=== PATIENT | female | born 1970 | race Two or more races ===

== ENCOUNTER 2025-07-24 11:00 | Inpatient (IN) | payer BC, SELFPAY ==
--- NOTE | ~2025-07-24 | CT_ITS ---
EXAMINATION: CT ABDOMEN PELVIS WITHOUT IV CONTRAST HISTORY: Sepsis COMPARISON: There are no prior studies available for comparison. TECHNIQUE: CT scan of the abdomen and pelvis was performed without contrast using standard departmental protocol. Coronal and sagittal reformatted images were generated and reviewed. This CT exam was performed with one or more of the following dose reduction techniques: automated exposure control, adjustment of the mA and/or kV according to patient size, use of iterative reconstruction technique. DLP: 422 mGy-cm FINDINGS: LOWER CHEST: The visualized lung bases are clear. There is no pleural effusion. CARDIOVASCULATURE: The heart is normal in size. There is no pericardial effusion. LIVER: The liver is normal in size and contour. The liver has an unremarkable unenhanced appearance. GALLBLADDER / BILE DUCTS: The gallbladder is not seen and has presumably been removed. There is no intra or extrahepatic biliary ductal dilatation. SPLEEN: The spleen is normal in size and has an unremarkable unenhanced appearance. PANCREAS: The pancreas has an unremarkable unenhanced appearance. ADRENAL GLANDS: Unremarkable. KIDNEYS/RETROPERITONEUM: No renal calculi are identified. There is no hydronephrosis. LYMPH NODES: Small mesenteric lymph nodes. No enlarged lymph nodes. VASCULATURE: Normal. MESENTERY/PERITONEUM: No free fluid. No masses. There is no free intraperitoneal gas. STOMACH: Normal SMALL BOWEL: The small bowel is normal in caliber. COLON: Fluid-filled colon suggestive of an ileus. Mild wall thickening of the left colon and sigmoid colon and stranding of the fat questionable for mild colitis. No pneumatosis. APPENDIX: Normal. URINARY BLADDER/PELVIC ORGANS: Empty bladder. Hysterectomy. No pelvic mass. BONES / SOFT TISSUES: Tiny umbilical hernia containing fat. Nonspecific subcentimeter sclerotic lesion in the L3 vertebral body. This may represent a bone island. CT/CT abdomen pelvis wo IV con IMPRESSION: Colonic ileus and question mild colitis of the distal colon. Electronically signed by: Yu eMade MD 07/24/2025 02:35 PM EDT
--- NOTE | ~2025-07-24 | CT_ITS ---
EXAMINATION: CT CHEST WITHOUT CONTRAST CLINICAL INFORMATION: Sepsis COMPARISON: None available. TECHNIQUE: Multidetector volumetric CT imaging of the chest was done. Axial MIP volume rendering provided. Sagittal and coronal reformatted images were obtained. This CT examination was performed using dose optimization techniques as appropriate, variously including the following: *Automated exposure control *Adjustment of mA and/or kV according to patient size (this includes techniques or standardized protocols for targeted exams where dose is matched to indication/reason for exam; i.e. extremities or head) *Use of iterative reconstruction technique FINDINGS: LUNGS: There is a 2 x 4 mm solid pulmonary nodule in the lateral right upper lobe. Lungs are clear otherwise. MEDIASTINUM: The mediastinum is normal. CORONARY ARTERY CALCIFICATION: None PLEURA: There is no pleural effusion. No pleural mass or thickening. AXILLA: No lymphadenopathy. UPPER ABDOMEN: Unremarkable. OSSEOUS STRUCTURES: Unremarkable. CT/CT chest wo IV con IMPRESSION: No acute abnormality. 2 x 4 mm solid pulmonary nodule in the lateral right upper lobe. No further follow-up is indicated per Fleischner Society recommendations, unless the patient falls into a high risk category, in which case a 12 month follow-up CT chest without contrast is optional. High risk patients includes those with a history of smoking, first-degree relative with lung cancer, or exposure to uranium, radon, or asbestos. Electronically signed by: Demond Bowman MD 07/24/2025 01:31 PM EDT
[2025-07-24 11:07] VITALS: BP 104/76; PULSE 111; RESP 18; TEMP 36.7; O2SAT 98; BMI 21.9
--- NOTE | 2025-07-24 11:09 | ED.GENADULT ---
HPI - General Adult General Chief complaint: Abdominal Pain Stated complaint: Dizziness, headache, vomiting Time Seen by Provider: 07/24/25 12:18 History of Present Illness ED Provider: Dr. Vital HPI narrative: 55 y/o F patient; PMH CKD stage III, Lupus on hydroxychloroquine, hx neutropenia; presents from home reporting approx 4 days of nausea/vomiting, abdominal pain, bright red bloody stools, intermittent fevers, and generalized weakness. The patient otherwise denies: cough/congestion, SOB, chest pain, syncope. Hx hysterectomy 11/17 to cervical CA, tubal ligation, cholecystectomy in March 2025. Related Data Home Medications ?Medication ?Instructions ?Recorded ?Confirmed hydroxychloroquine 200 mg tablet 400 mg PO DAILY 07/24/25 07/24/25 tirzepatide (weight loss) 2.5 2.5 mg subcut QWEEK 07/24/25 07/24/25 mg/0.5 mL subcutaneous pen injector (Zepbound) Allergies Allergy/AdvReac Type Severity Reaction Status Date / Time acetaminophen (From Percocet) Allergy Abdominal Verified 07/24/25 11:13 Pain oxycodone (From Percocet) Allergy Abdominal Verified 07/24/25 11:13 Pain Review of Systems Review of Systems: Yes all other systems are reviewed and are negative PMFSH Past Medical History Attestation statement: The following information was validated with the patient. Source: unable to obtain Social History Social History Unable to assess alcohol history related to: Unknown Advance Directives: No Advance Directives Information Provided: Yes Do you have a plan to hurt others: No Plan Physical Exam ED Vital Signs: Vital Signs - 24 hr 07/24/25 11:07 07/24/25 12:46 Temperature 98.1 F 98.3 F Pulse Rate 111 H 98 Respiratory Rate 18 18 Blood Pressure 104/76 120/75 Pulse Oximetry 98 100 Oxygen Delivery Method Room Air Room Air BMI result Body Mass Index 21.9 Patient is afebrile, tachycardic, with soft blood pressure Const General: cooperative and no acute distress HENMT Head: Yes normal to inspection and Yes atraumatic Eyes General: appearance normal, both eyes and all related structures Pupils: Equal, round and reactive pupils present EOM: EOMs intact bilaterally Neck Neck: Yes normal visual inspection and Yes supple Chest Chest palpation & inspection: normal inspection of the chest and normal palpation of entire chest wall Resp Effort & Inspection: normal respiratory effort, able to speak in complete sentences and no cough Auscultation: clear to auscultation bilaterally Cardio Rate: tachycardic Rhythm: regular rhythm Peripheral pulses: Peripheral pulses 2+ throughout GI Other: Generalized non-focal abdominal pain Inspection: Yes normal to inspection, No Abdominal wall edema and No distended Palpation (GI): Soft to palpation, not firm, Tenderness to palpation present (GI), no guarding and not rigid Auscultation: normal bowel sounds Back/Spine/Pelvis Back: No back tenderness Neuro Cranial nerves: Yes Equal, round and reactive pupils present Course Course Course Narrative: This is a rapid medical exam performed by Roseanna Stanton NP: Additional HPI, ROS, PE not included below will be deferred to primary provider. Patient is a 55y/o F presenting to the ED with complaint of nasuea, vomiting, diarrhea, epigastric pain, fever since Monday night. Two episodes of hematochezia this am. Also stating she has neutropenia. Not anticoagulated. Plan: Labs, viral swabs Reevaluation(s) Reevaluation #1: Patient is afebrile, tachycardic, with soft blood pressure. Reviewed triage work up. Mild neutropenia 3.9. 15% bands. Cr 2.84, unknown baseline. LA 2.1. AST/ALT 109/455 Alk Phos 166. Anion gap 16. UA with trace ketones. Blood cultures ordered and pending. Providing 2L IVF. Started on empiric Zosyn for sepsis in the setting of neutropenic fever. Unclear source of sepsis. UA is not remarkable. Will obtain CT Chest/Abdomen/Pelvis w/o contrast given elevated Cr. CT Chest with only incidental pulmonary nodule without other findings. CT Abdomen/Pelvis notable for colitis. Stool studies are pending. Acetaminophen and hepatitis panel negative. Plan: Admit to hospital Condition: Stable Medications Administered Discontinued Medications Generic Name Dose Route Start Last Admin Trade Name Freq PRN Reason Stop Dose Admin Sodium Chloride 1,000 mls @ 999 mls/hr 07/24/25 12:30 07/24/25 12:42 Ns IV 07/24/25 13:30 999 mls/hr .Q1H1M HEATHER Administration Sodium Chloride 1,000 mls @ 999 mls/hr 07/24/25 12:45 07/24/25 12:54 Ns IV 07/24/25 13:45 999 mls/hr .Q1H1M HEATHER Administration Piperacillin Sod/Tazobactam 100 mls @ 200 mls/hr 07/24/25 12:34 07/24/25 14:14 Sod 4.5 gm/ Sodium Chloride IV 07/24/25 13:03 Infused ONCE ONE Infusion Medical Decision Making Lab Data 07/24/25 11:42 07/24/25 11:42 Labs: Lab Results 07/24/25 07/24/25 07/24/25 Range/Units 11:41 11:42 13:36 WBC 3.9 L (4.8-10.8) X10*3/uL RBC 5.20 (4.20-5.50) X10*6/uL Hgb 15.1 (12.0-16.0) g/dl Hct 43.5 (37.0-47.0) % MCV 83.7 (80.0-98.0) fL MCH 29.0 (27.0-33.0) pg MCHC 34.7 (31.0-35.0) g/dl RDW 12.1 (11.0-16.0) % Plt Count 223 (160-400) X10*3/uL MPV 11.0 (9.4-12.3) fL Immature Gran % (Auto) Cancelled Neut % (Auto) Cancelled Lymph % (Auto) Cancelled [place] % (Auto) Cancelled Eos % (Auto) Cancelled Baso % (Auto) Cancelled Lymph # (Auto) Cancelled [place] # (Auto) Cancelled Eos # (Auto) Cancelled Baso # (Auto) Cancelled Abs Immat Gran (auto) Cancelled Absolute Neuts (auto) Cancelled Absolute Nucleated RBC 0.000 (0.0-0.012) X10*3/uL Nucleated RBC % (auto) 0.0 (0.0-0.2) /100WBC Neutrophils % (Manual) 54 (45-73) % Band Neutrophils % 15 H (3-5) % Lymphocytes % (Manual) 18 L (20-40) % Monocytes % (Manual) 10 (2-11) % Basophils % (Manual) 1 (0-2) % Metamyelocytes % 2 % Abs Neuts (Manual) 2.7 (2.0-8.3) X10*3/uL Lymphocytes # (Manual) 0.7 L (1.2-4.9) X10*3/uL Monocytes # (Manual) 0.4 (0.1-1.2) X10*3/uL Metamyelocytes # 0.1 X10*3/uL Toxic Vacuolation PRESENT Platelet Estimate NORMAL (NORMAL) Plt Morphology Comment NOTED RBC Morphology NOTED Spherocytes 1+ (0-2) /OIF [place] Cells 2+ (3-5) /OIF PT 11.2 (10.9-12.4) SEC INR 1.0 (0.9-1.1) Sodium 136 (135-145) mmol/L Potassium 3.3 (3.3-5.1) mmol/L Chloride 102 (96-108) mmol/L Carbon Dioxide 21 L (22-29) mmol/L Anion Gap 16 (12-20) BUN 39 H (9-16) mg/dL Creatinine 2.84 H (0.5-1.4) mg/dL Estim Creat Clear Calc 19.0 Estimated GFR 17 Random Glucose 123 H (60-115) mg/dL Lactic Acid 2.1 H* (0.5-2.0) mmol/L Lactic Acid F/U @ 2Hr (0.5-2.0) mmol/L Calcium 10.3 H (8.4-10.2) mg/dL Magnesium 2.1 (1.6-2.6) mg/dL Total Bilirubin 0.6 (0.0-1.0) mg/dL AST 109 H (5-31) U/L ALT 455 H (0-31) U/L Alkaline Phosphatase 166 H (39-117) U/L Total Protein 8.4 H (6.5-8.0) g/dL Albumin 4.9 (3.5-5.0) g/dL Lipase 23 (8-78) U/L Urine Color Dark Yellow Urine Appearance Turbid Urine pH 5.0 (5.0-9.0) Ur Specific [place] >= 1.030 H (1.005-1.025) Urine Protein 100 (2+) H (Neg-Trace) mg/dL Urine Glucose (UA) Negative (Negative) mg/dL Urine Ketones Trace (Negative) mg/dL Urine Blood Trace H (Negative) Urine Nitrite Negative (Negative) Ur Leukocyte Esterase Negative (Negative) Urine RBC 6-10 H (0-2) /HPF Urine WBC 6-10 (0-5) /HPF Ur Squamous Epith Cells 3-5 (0-2) /HPF Urine Bacteria 3+ (None Seen) Epithelial Casts Present Hyaline Casts 3-5 (0-2) /LPF Granular Casts Present Acetaminophen < 3 (<30) mcg/mL COVID-19 (POONAM) Negative (Negative) COVID-19 Clin Com See Note Hepatitis A IgM Ab Nonreactive (Nonreactive) Hep Bs Antigen Negative (Negative) Hep Bs Antibody NONREACTIVE (Nonreactive) Hep B Core Total Ab Nonreactive (Nonreactive) Hepatitis C Ab (EIA) Nonreactive (Nonreactive) HIV 1&2 Ab/P24 Ag 4thGn Nonreactive (Nonreactive) Influenza Type A (ARTURO) Negative (Negative) Influenza Type B (ARTURO) Negative (Negative) Influenza A & B Note See Note 07/24/25 Range/Units 14:31 WBC (4.8-10.8) X10*3/uL RBC (4.20-5.50) X10*6/uL Hgb (12.0-16.0) g/dl Hct (37.0-47.0) % MCV (80.0-98.0) fL MCH (27.0-33.0) pg MCHC (31.0-35.0) g/dl RDW (11.0-16.0) % Plt Count (160-400) X10*3/uL MPV (9.4-12.3) fL Immature Gran % (Auto) Neut % (Auto) Lymph % (Auto) [place] % (Auto) Eos % (Auto) Baso % (Auto) Lymph # (Auto) [place] # (Auto) Eos # (Auto) Baso # (Auto) Abs Immat Gran (auto) Absolute Neuts (auto) Absolute Nucleated RBC (0.0-0.012) X10*3/uL Nucleated RBC % (auto) (0.0-0.2) /100WBC Neutrophils % (Manual) (45-73) % Band Neutrophils % (3-5) % Lymphocytes % (Manual) (20-40) % Monocytes % (Manual) (2-11) % Basophils % (Manual) (0-2) % Metamyelocytes % % Abs Neuts (Manual) (2.0-8.3) X10*3/uL Lymphocytes # (Manual) (1.2-4.9) X10*3/uL Monocytes # (Manual) (0.1-1.2) X10*3/uL Metamyelocytes # X10*3/uL Toxic Vacuolation Platelet Estimate (NORMAL) Plt Morphology Comment RBC Morphology Spherocytes /OIF [place] Cells /OIF PT (10.9-12.4) SEC INR (0.9-1.1) Sodium (135-145) mmol/L Potassium (3.3-5.1) mmol/L Chloride (96-108) mmol/L Carbon Dioxide (22-29) mmol/L Anion Gap (12-20) BUN (9-16) mg/dL Creatinine (0.5-1.4) mg/dL Estim Creat Clear Calc Estimated GFR Random Glucose (60-115) mg/dL Lactic Acid (0.5-2.0) mmol/L Lactic Acid F/U @ 2Hr 1.6 (0.5-2.0) mmol/L Calcium (8.4-10.2) mg/dL Magnesium (1.6-2.6) mg/dL Total Bilirubin (0.0-1.0) mg/dL AST (5-31) U/L ALT (0-31) U/L Alkaline Phosphatase (39-117) U/L Total Protein (6.5-8.0) g/dL Albumin (3.5-5.0) g/dL Lipase (8-78) U/L Urine Color Urine Appearance Urine pH (5.0-9.0) Ur Specific [place] (1.005-1.025) Urine Protein (Neg-Trace) mg/dL Urine Glucose (UA) (Negative) mg/dL Urine Ketones (Negative) mg/dL Urine Blood (Negative) Urine Nitrite (Negative) Ur Leukocyte Esterase (Negative) Urine RBC (0-2) /HPF Urine WBC (0-5) /HPF Ur Squamous Epith Cells (0-2) /HPF Urine Bacteria (None Seen) Epithelial Casts Hyaline Casts (0-2) /LPF Granular Casts Acetaminophen (<30) mcg/mL COVID-19 (POONAM) (Negative) COVID-19 Clin Com Hepatitis A IgM Ab (Nonreactive) Hep Bs Antigen (Negative) Hep Bs Antibody (Nonreactive) Hep B Core Total Ab (Nonreactive) Hepatitis C Ab (EIA) (Nonreactive) HIV 1&2 Ab/P24 Ag 4thGn (Nonreactive) Influenza Type A (ARTURO) (Negative) Influenza Type B (ARTURO) (Negative) Influenza A & B Note Radiology Impression Discussion of test interpretation with radiology: I have reviewed the radiologist's reading. Radiologist Impression: Ordering Physician: Ester Vital MD Date of Service: 07/24/25 Procedure(s): CT chest wo IV con Accession Number(s): [id number] cc: Ester Vital MD; [facility]~ Report Number: [id number]: Total DLP = 220.00 mGy-cm Reason for Exam: Sepsis EXAMINATION: CT CHEST WITHOUT CONTRAST CLINICAL INFORMATION: Sepsis COMPARISON: None available. TECHNIQUE: Multidetector volumetric CT imaging of the chest was done. Axial MIP volume rendering provided. Sagittal and coronal reformatted images were obtained. This CT examination was performed using dose optimization techniques as appropriate, variously including the following: *Automated exposure control *Adjustment of mA and/or kV according to patient size (this includes techniques or standardized protocols for targeted exams where dose is matched to indication/reason for exam; i.e. extremities or head) *Use of iterative reconstruction technique FINDINGS: LUNGS: There is a 2 x 4 mm solid pulmonary nodule in the lateral right upper lobe. Lungs are clear otherwise. MEDIASTINUM: The mediastinum is normal. CORONARY ARTERY CALCIFICATION: None PLEURA: There is no pleural effusion. No pleural mass or thickening. AXILLA: No lymphadenopathy. UPPER ABDOMEN: Unremarkable. OSSEOUS STRUCTURES: Unremarkable. CT/CT chest wo IV con IMPRESSION: No acute abnormality. 2 x 4 mm solid pulmonary nodule in the lateral right upper lobe. No further follow-up is indicated per Fleischner Society recommendations, unless the patient falls into a high risk category, in which case a 12 month follow-up CT chest without contrast is optional. High risk patients includes those with a history of smoking, first-degree relative with lung cancer, or exposure to uranium, radon, or asbestos. Electronically signed by: Demond Bowman MD 07/24/2025 01:31 PM EDT Discharge Plan Discharge Clinical Impression: Sepsis, Leukopenia, Bandemia, Colitis Patient Disposition: Admitted As Inpatient
[2025-07-24 11:52] LABS: Hematocrit 43.5 % (37.0-47.0); Hemoglobin 15.1 g/dl (12.0-16.0); Mean Corpuscular HGB Conc 34.7 g/dl (31.0-35.0); Mean Corpuscular Hemoglobin 29.0 pg (27.0-33.0); Mean Corpuscular Volume 83.7 fL (80.0-98.0); NRBC Abs Auto 0.000 X10*3/uL (0.0-0.012); NRBC Pct Auto 0.0 /100WBC (0.0-0.2); Platelet Count 223 X10*3/uL (160-400); Red Blood Count 5.20 X10*6/uL (4.20-5.50); White Blood Count 3.9 X10*3/uL (4.8-10.8)
[2025-07-24 11:54] LABS: Appearance Urine Turbid; Glucose Urine UA Negative (Negative); PH 5.0 (5.0-9.0); Specific Gravity - Urine >= 1.030 (1.005-1.025); UMIC TRIGGER UACC YES
[2025-07-24 11:57] LABS: INTERNATIONAL NORM RATIO 1.0 (0.9-1.1); Prothrombin Time 11.2 SEC (10.9-12.4)
[2025-07-24 12:05] LABS: COVID-19 Test Negative (Negative); IDNOW Serial# 6674DD1D
[2025-07-24 12:09] LABS: Alanine Aminotransferase 455 U/L (0-31); Albumin Level 4.9 g/dL (3.5-5.0); Alkaline Phosphatase 166 U/L (39-117); Anion Gap 16 (12-20); Aspartate Amino Transferase 109 U/L (5-31); Blood Urea Nitrogen 39 mg/dL (9-16); Calcium 10.3 mg/dL (8.4-10.2); Carbon Dioxide 21 mmol/L (22-29); Chloride 102 mmol/L (96-108); Creatinine Clr Calc Pharmacy 19.0; Estimated Glomerular Filt Rate 17; Lipase 23 U/L (8-78); Magnesium 2.1 mg/dL (1.6-2.6); Potassium 3.3 mmol/L (3.3-5.1); Sodium 136 mmol/L (135-145); Total Protein 8.4 g/dL (6.5-8.0)
[2025-07-24 12:15] LABS: IDNOW Serial# 55D5AD1C; Influenza B2 Negative (Negative)
[2025-07-24 12:21] LABS: Basophils Percent Manual 1 % (0-2); Lymphocytes Absolute Manual 0.7 X10*3/uL (1.2-4.9); Lymphocytes Percent Manual 18 % (20-40); Metamyelocytes Absolute 0.1 X10*3/uL; Metamyelocytes Percent 2 %; Monocytes Absolute Manual 0.4 X10*3/uL (0.1-1.2); Monocytes Percent Manual 10 % (2-11); Neutrophils Absolute Manual 2.7 X10*3/uL (2.0-8.3); Neutrophils Percent Manual 54 % (45-73)
[2025-07-24 12:23] LABS: RBC Morphology NOTED
[2025-07-24 12:23] LABS: Epith (RTE) Cast Present; UACC Culture Trigger YES
[2025-07-24 12:25] LABS: Band Neutrophils Percent 15 % (3-5)
[2025-07-24 12:26] LABS: Burr Cells 2+ (3-5) /OIF; Spherocytes 1+ (0-2) /OIF; Toxic Vacuolation PRESENT
[2025-07-24 12:46] VITALS: BP 120/75; PULSE 98; RESP 18; TEMP 36.8; O2SAT 100
[2025-07-24 12:56] VITALS: BP 125/76; PULSE 89; RESP 19; TEMP 36.8; O2SAT 100
[2025-07-24 13:47] LABS: Reflex Lactate? Lactic Acid Added
[2025-07-24 14:00] LABS: Acetaminophen LAB < 3 mcg/mL (<30)
[2025-07-24 14:21] LABS: HIV Num 1 0.05 S/CO (0.00-0.99)
[2025-07-24 14:22] LABS: HBS Num1 0.00 mIU/mL (0-7.99); HBc Num1 0.08 S/CO (0.00-0.79); HBsAGNum1 0.34 S/CO (0.00-0.99); Hepatitis A Antibody IgM 0.27 Index (0-0.79); Hepatitis B Surface Antigen Negative (Negative); ~Hepatitis A Antibody IgM Nonreactive (Nonreactive); ~Hepatitis B Surface Antibody NONREACTIVE (Nonreactive)
[2025-07-24 14:30] LABS: ~HepC Num1 0.20 S/CO (0.00-0.79); ~Hepatitis C Antibody Nonreactive (Nonreactive)
[2025-07-24 14:53] LABS: ~Lactic Acid-LAB USE ONLY 1.6 mmol/L (0.5-2.0)
--- NOTE | 2025-07-24 15:18 | PHA.MEDREC ---
Addendum entered by Poli Delgado PharmD 07/24/25 15:23: reviewed Original Note: Pharmacy Consult ? Medication Reconciliation Pharmacy has completed the medication reconciliation. Spoke with pt and she confirmed her medications. Pt stopped the Zepbound in the last few weeks due to it being too much for pt and worked too well she stated.
--- NOTE | 2025-07-24 15:48 | P.HPHOSP_ITS ---
History of Present Illness Date of Service: 07/24/25 Attending physician on admission: Jose R Macias Chief Complaint: abdominal pain, diarrhea This is a 55-year-old female with a history of lupus, CKD who presents to the emergency department with multiple complaints. She reports headache, body aches, generalized abdominal pain since Monday. Her abdominal pain is associated with vomiting and numerous episodes of diarrhea. She reports decreased oral intake fatigue. She also reports a fever of 101 at home. Today she came to the emergency department due to her persistent symptoms. Lab work was significant for creatinine of 2.84, leukopenia with a white count of 3.9 with 15% bands. Initial lactic acid was elevated at 2.1, this improved to 1.6 after IV fluid. Her LFTs were also elevated. CT scan in the emergency department showed concern over colitis. She was treated with IV Zosyn and she will be admitted for further management. Review of Systems 2 Review of Systems: Yes all other systems are reviewed and are negative Constitutional: Constitutional: Reports fever(s) Cardiovascular: Cardiovascular: Denies chest pain, Denies palpitations and Denies dyspnea Respiratory: Respiratory: Denies cough and Denies dyspnea Gastrointestinal: Gastrointestinal: Reports abdominal pain, Reports diarrhea, Reports nausea and Reports vomiting Endocrine: Endocrine: Denies palpitations [facility] Medical History (Updated 07/24/25 @ 16:21 by MADI Olivas) Cervical cancer CKD (chronic kidney disease) stage 3, GFR 30-59 ml/min Lupus (systemic lupus erythematosus) Social History Unable to assess alcohol history related to: Unknown Patient Tobacco Use Status: Tobacco use Unknown Advance Directives: No Advance Directives Information Provided: Yes Do you have a plan to hurt others: No Plan Meds Allergies Allergy/AdvReac Type Severity Reaction Status Date / Time acetaminophen (From Percocet) Allergy Abdominal Verified 07/24/25 11:13 Pain oxycodone (From Percocet) Allergy Abdominal Verified 07/24/25 11:13 Pain Active Medications: Current Medications Calcium Carbonate (Calcium Carbonate 750 Mg Tab.Chew) 750 mg PO Q4H PRN PRN Reason: Heartburn Heparin Sodium (Porcine) (Heparin Sodium,Porcine 5,000 Unit/Ml Vial) 5,000 unit SUBCUT Q12H HEATHER Lactated Ringer's (Lr) 1,000 mls @ 125 mls/hr IVCONT .Q8H HEATHER Magnesium Hydroxide (Milk Of Magnesia 30 Ml Oral.Susp) 30 ml PO DAILY PRN PRN Reason: Constipation Melatonin (Melatonin 3 Mg Tablet) 6 mg PO BEDTIME PRN PRN Reason: Insomnia Sodium Chloride (0.9 % Sodium Chloride Flush 3 Ml Syringe) 3 ml IVFLUSH QSHIFT HEATHER Home Medications ?Medication ?Instructions ?Recorded ?Confirmed ?Last Taken ?Type hydroxychloroquine 200 mg tablet 400 mg PO DAILY 07/2407/24/25 07/21/25 History Physical Exam 2 Vital Signs and Narrative: Vital Signs: Last Vital Signs Temp 98.3 F 07/24/25 12:46 Pulse 98 07/24/25 12:46 Resp 18 07/24/25 12:46 BP 120/75 07/24/25 12:46 Pulse Ox 100 07/24/25 12:46 O2 Del Method Room Air 07/24/25 12:46 BMI result Body Mass Index 21.9 Const: Other: appears uncomfortable General: alert and awake Nutritional Appearance: average body habitus Orientation/consciousness: patient oriented x3 GI: Inspection: No distended Palpation (GI): Soft to palpation and no guarding Neuro: General: patient oriented x3, moves all extremities and CN's II-XI intact bilaterally Results Labs 07/24/25 11:42 07/24/25 11:42 Labs: Laboratory Results - last 24 hr 07/24/25 07/24/25 07/24/25 11:41 11:42 13:36 MCV 83.7 MCH 29.0 MCHC 34.7 RDW 12.1 Plt Count 223 MPV 11.0 Immature Gran % (Auto) Cancelled Neut % (Auto) Cancelled Lymph % (Auto) Cancelled [place] % (Auto) Cancelled Eos % (Auto) Cancelled Baso % (Auto) Cancelled Lymph # (Auto) Cancelled [place] # (Auto) Cancelled Eos # (Auto) Cancelled Baso # (Auto) Cancelled Abs Immat Gran (auto) Cancelled Absolute Neuts (auto) Cancelled Absolute Nucleated RBC 0.000 Nucleated RBC % (auto) 0.0 Neutrophils % (Manual) 54 Band Neutrophils % 15 H Lymphocytes % (Manual) 18 L Monocytes % (Manual) 10 Basophils % (Manual) 1 Metamyelocytes % 2 Abs Neuts (Manual) 2.7 Lymphocytes # (Manual) 0.7 L Monocytes # (Manual) 0.4 Metamyelocytes # 0.1 Toxic Vacuolation PRESENT Platelet Estimate NORMAL Plt Morphology Comment NOTED RBC Morphology NOTED Spherocytes 1+ (0-2) [place] Cells 2+ (3-5) PT 11.2 INR 1.0 Anion Gap 16 Estim Creat Clear Calc 19.0 Estimated GFR 17 Random Glucose 123 H Lactic Acid 2.1 H* Lactic Acid F/U @ 2Hr Calcium 10.3 H Magnesium 2.1 Total Bilirubin 0.6 AST 109 H ALT 455 H Alkaline Phosphatase 166 H Total Protein 8.4 H Albumin 4.9 Lipase 23 Urine Color Dark Yellow Urine Appearance Turbid Urine pH 5.0 Ur Specific [place] >= 1.030 H Urine Protein 100 (2+) H Urine Glucose (UA) Negative Urine Ketones Trace Urine Blood Trace H Urine Nitrite Negative Ur Leukocyte Esterase Negative Urine RBC 6-10 H Urine WBC 6-10 Ur Squamous Epith Cells 3-5 Urine Bacteria 3+ Epithelial Casts Present Hyaline Casts 3-5 Granular Casts Present Acetaminophen < 3 COVID-19 (POONAM) Negative COVID-19 Clin Com See Note Hepatitis A IgM Ab Nonreactive Hep Bs Antigen Negative Hep Bs Antibody NONREACTIVE Hep B Core Total Ab Nonreactive Hepatitis C Ab (EIA) Nonreactive HIV 1&2 Ab/P24 Ag 4thGn Nonreactive Influenza Type A (ARTURO) Negative Influenza Type B (ARTURO) Negative Influenza A & B Note See Note 07/24/25 14:31 MCV MCH MCHC RDW Plt Count MPV Immature Gran % (Auto) Neut % (Auto) Lymph % (Auto) [place] % (Auto) Eos % (Auto) Baso % (Auto) Lymph # (Auto) [place] # (Auto) Eos # (Auto) Baso # (Auto) Abs Immat Gran (auto) Absolute Neuts (auto) Absolute Nucleated RBC Nucleated RBC % (auto) Neutrophils % (Manual) Band Neutrophils % Lymphocytes % (Manual) Monocytes % (Manual) Basophils % (Manual) Metamyelocytes % Abs Neuts (Manual) Lymphocytes # (Manual) Monocytes # (Manual) Metamyelocytes # Toxic Vacuolation Platelet Estimate Plt Morphology Comment RBC Morphology Spherocytes [place] Cells PT INR Anion Gap Estim Creat Clear Calc Estimated GFR Random Glucose Lactic Acid Lactic Acid F/U @ 2Hr 1.6 Calcium Magnesium Total Bilirubin AST ALT Alkaline Phosphatase Total Protein Albumin Lipase Urine Color Urine Appearance Urine pH Ur Specific [place] Urine Protein Urine Glucose (UA) Urine Ketones Urine Blood Urine Nitrite Ur Leukocyte Esterase Urine RBC Urine WBC Ur Squamous Epith Cells Urine Bacteria Epithelial Casts Hyaline Casts Granular Casts Acetaminophen COVID-19 (POONAM) COVID-19 Clin Com Hepatitis A IgM Ab Hep Bs Antigen Hep Bs Antibody Hep B Core Total Ab Hepatitis C Ab (EIA) HIV 1&2 Ab/P24 Ag 4thGn Influenza Type A (ARTURO) Influenza Type B (ARTURO) Influenza A & B Note Imaging Radiologist's Impressions: Impressions Abdomen/Pelvis CT 07/24/25 13:03 IMPRESSION: Colonic ileus and question mild colitis of the distal colon. Electronically signed by: Yu Meade MD 07/24/2025 02:35 PM EDT RP Chest CT 07/24/25 13:03 IMPRESSION: No acute abnormality. 2 x 4 mm solid pulmonary nodule in the lateral right upper lobe. No further follow-up is indicated per Fleischner Society recommendations, unless the patient falls into a high risk category, in which case a 12 month follow-up CT chest without contrast is optional. High risk patients includes those with a history of smoking, first-degree relative with lung cancer, or exposure to uranium, radon, or asbestos. Electronically signed by: Demond Bowman MD 07/24/2025 01:31 PM EDT RP Assessment and Plan (1) Colitis: Status: Acute (2) Sepsis: Status: Acute Plan This is a 55-year-old female with history of lupus, CKD 3, cervical cancer status post hysterectomy who presents to the emergency department with abdominal pain found to have colitis and elevated LFTs Sepsis due to probable colitis Tachycardia, leukopenia, bandemia. Lactic acid 2.1, improved to 1.6 after IV fluid Continue empiric Zosyn GI panel ordered due to persistent diarrhea Symptomatic support for nausea and pain Follow blood cultures ALEXIS on CKD3 no baseline creatinine, but cr clearance and GFR below stage 3 CKD IVF trend BMP Elevated LFTs no baseline for comparison ?due to sepsis CT scan with normal appearing liver; h/o cholecystectomy and no biliary duct dilation on imaging trend LFTs lupus hold hydroxychloroquine in the setting of elevated LFTs and acute infection DVT prophylaxis-heparin Code status-full code patient will likely require 2 midnight stay in the hospital for management of colitis requiring IV antibiotics in a patient with underlying lupus, relative immune compromise on hydroxychloroquine Quality Stroke Does the patient have a stroke diagnosis?: No VTE Prior VTE?: No VTE Risk Level:: Medical - moderate - high VTE Device Contraindication: N/A - Device Ordered VTE Drug Contraindication: N/A - Med Ordered
[2025-07-24 16:11] VITALS: BP 134/84; PULSE 87
[2025-07-24 16:12] VITALS: BP 142/87; PULSE 91
[2025-07-24] MEDS: 0.9 % Sodium Chloride Flush 3 ML SYRINGE IVFLUSH ×2 (16:30→21:35)
[2025-07-24] MEDS: Lactated Ringers 1,000 ML 125 ML IVCONT (16:31)
--- NOTE | 2025-07-24 16:51 | HO.NURTONUR ---
Yu is a 55 yo female, full code, allergies to acetaminophen and oxycodone who came to ED for reports of N/V/abdominal pain x 4 days and bright red bloody stools. Labs showed lactic 2.1, repeat 1.6 and WBC 3.9- per pt reports hx of neutropenia. Abd CT shows colitis and also found pulmonary nodule. Given IVF and IV abx in ED. A/O x 3, #20 to right AC, ambulates/continent of bowel and bladder. On CLD, given IV zofran for nausea...
[2025-07-24 22:13] VITALS: BP 136/83; PULSE 73; RESP 20; TEMP 36.7; O2SAT 96
[2025-07-25] MEDS: Lactated Ringers 1,000 ML 125 ML IVCONT ×4 (00:04→23:53)
[2025-07-25 03:21] VITALS: BP 131/66; PULSE 77; RESP 16; TEMP 37.1; O2SAT 99
[2025-07-25 06:44] LABS: Hematocrit 32.7 % (37.0-47.0); Hemoglobin 11.3 g/dl (12.0-16.0); Mean Corpuscular HGB Conc 34.6 g/dl (31.0-35.0); Mean Corpuscular Hemoglobin 29.2 pg (27.0-33.0); Mean Corpuscular Volume 84.5 fL (80.0-98.0); NRBC Abs Auto 0.000 X10*3/uL (0.0-0.012); NRBC Pct Auto 0.0 /100WBC (0.0-0.2); Platelet Count 174 X10*3/uL (160-400); Red Blood Count 3.87 X10*6/uL (4.20-5.50); White Blood Count 4.3 X10*3/uL (4.8-10.8)
[2025-07-25 06:45] LABS: Alanine Aminotransferase 233 U/L (0-31); Albumin Level 3.5 g/dL (3.5-5.0); Alkaline Phosphatase 104 U/L (39-117); Anion Gap 13 (12-20); Aspartate Amino Transferase 45 U/L (5-31); Blood Urea Nitrogen 29 mg/dL (9-16); Calcium 8.9 mg/dL (8.4-10.2); Carbon Dioxide 22 mmol/L (22-29); Chloride 106 mmol/L (96-108); Creatinine Clr Calc Pharmacy 31.7; Estimated Glomerular Filt Rate 31; Potassium 2.7 mmol/L (3.3-5.1); Sodium 138 mmol/L (135-145); Total Protein 6.1 g/dL (6.5-8.0)
--- NOTE | 2025-07-25 07:17 | PC.NURSE ---
Pt seen on bed alert and oriented, endorsing epig pain with nausea every po intake and lower abd pain but tolerating, meds given, BM 2-3 x during the night and pt is reporting mucoid watery stool, IVF running. At 0640 pt had a critical K =2.7, Dr. Julian aware, reported to in-coming RITA Hernandez.
[2025-07-25 07:18] LABS: Atypical Lymph Absolute Manual 0.1 x10*3/uL; Atypical Lymphs Percent Manual 2 % (0-6); Band Neutrophils Percent 23 % (3-5); Basophils Percent Manual 1 % (0-2); Lymphocytes Absolute Manual 0.9 X10*3/uL (1.2-4.9); Lymphocytes Percent Manual 21 % (20-40); Monocytes Absolute Manual 0.6 X10*3/uL (0.1-1.2); Monocytes Percent Manual 14 % (2-11); Neutrophils Absolute Manual 2.7 X10*3/uL (2.0-8.3); Neutrophils Percent Manual 39 % (45-73)
[2025-07-25 07:19] LABS: RBC Morphology NOTED
[2025-07-25 07:21] LABS: Acanthocytes 1+ (0-2) /OIF; Burr Cells 2+ (3-5) /OIF; Ovalocytes 1+ (5-14) /OIF
[2025-07-25 07:25] LABS: Large Platelet PRESENT; Toxic Granulation PRESENT
[2025-07-25] MEDS: Potassium Chloride Packet 20 MEQ PACKET 40 MEQ PO (07:28)
[2025-07-25] MEDS: 0.9 % Sodium Chloride Flush 3 ML SYRINGE IVFLUSH ×2 (07:34→15:11)
[2025-07-25 08:00] VITALS: BP 117/65; PULSE 69; RESP 18; TEMP 36.7; O2SAT 99
--- NOTE | 2025-07-25 09:33 | MHC.CM.PN ---
CM MET WITH PT AT BEDSIDE. PT LIVES WITH ADULT CHILDREN AND IS FUNCTIONALLY INDEPENDENT. PT USES A WALKER/CANE WHEN HAVING FLARE OF LUPUS SX. NO SERVICES. + HCP PCP REINALDO NAVARRO DP: HOME, NO SERVICES ANTICIPATED. PT HAS OWN RIDE HOME. CM WILL CONTINUE TO FOLLOW FOR ANY CHANGE TO DC PLAN/NEEDS.
[2025-07-25 09:43] LABS: E. coli EAEC Not Detected (Not Detect.); E. coli EPEC Not Detected (Not Detect.); E. coli ETEC Not Detected (Not Detect.); E. coli STEC Not Detected (Not Detect.)
--- NOTE | 2025-07-25 09:52 | HO.PM.IMPN ---
Subjective Subjective Date of Service: 07/25/25 Interval History: Ongoing abdominal pain and diarrhea Physical Exam Exam: Exam: General: AO X 3 Resp: CTA bilateral, no accessory muscles used CVS: S1,S2,RRR GI: soft, tender, non distended Neuro: motor grossly intact, alert Psych: appropriate affect, appropriate insight Vital Signs: Vital Signs: Last Vital Signs Temp 98.1 F 07/25/25 08:00 Pulse 69 07/25/25 08:00 Resp 18 07/25/25 08:00 BP 117/65 07/25/25 08:00 Pulse Ox 99 07/25/25 08:00 O2 Del Method Room Air 07/25/25 08:00 BMI result Body Mass Index 21.9 Objective Data Active Medications Calcium Carbonate (Calcium Carbonate 750 Mg Tab.Chew) 750 mg PO Q4H PRN PRN Reason: Heartburn Last Admin: 07/24/25 21:30 Dose: 750 mg Documented By: CHUYITA Heparin Sodium (Porcine) (Heparin Sodium,Porcine 5,000 Unit/Ml Vial) 5,000 unit SUBCUT Q12H [facility] Last Admin: 07/25/25 03:45 Dose: 5,000 unit Documented By: IGGY Lactated Ringer's (Lr) 1,000 mls @ 125 mls/hr IVCONT .Q8H [facility] Last Admin: 07/25/25 07:35 Dose: 125 mls/hr Documented By: GIOVANY Piperacillin Sod/Tazobactam (Sod 2.25 gm/ Sodium Chloride) 50 mls @ 100 mls/hr IV Q8H [facility] Last Infusion: 07/25/25 05:27 Dose: Infused Documented By: IGGY Magnesium Hydroxide (Milk Of Magnesia 30 Ml Oral.Susp) 30 ml PO DAILY PRN PRN Reason: Constipation Melatonin (Melatonin 3 Mg Tablet) 6 mg PO BEDTIME PRN PRN Reason: Insomnia Last Admin: 07/24/25 21:31 Dose: 6 mg Documented By: CHUYITA Morphine Sulfate (Morphine Sulfate 2 Mg/Ml Cartridge) 2 mg IVPUSH Q4H PRN; Protocol PRN Reason: Pain, Severe (Pain Scale 7-10) Last Admin: 07/24/25 18:32 Dose: 2 mg Documented By: GIOVANY Ondansetron HCl (Ondansetron Hcl 4 Mg/2 Ml Vial) 4 mg IVPUSH Q8H PRN PRN Reason: Nausea and Vomiting Last Admin: 07/24/25 16:30 Dose: 4 mg Documented By: BRYAN Sodium Chloride (0.9 % Sodium Chloride Flush 3 Ml Syringe) 3 ml IVFLUSH QSHIFT [facility] Last Admin: 07/25/25 07:34 Dose: 3 ml Documented By: CHERYLIT Labs 07/25/25 05:32 07/25/25 05:32 Labs: Laboratory Results - last 24 hr 07/24/25 07/24/25 07/24/25 11:41 11:42 13:36 MCV 83.7 MCH 29.0 MCHC 34.7 RDW 12.1 Plt Count 223 MPV 11.0 Immature Gran % (Auto) Cancelled Neut % (Auto) Cancelled Lymph % (Auto) Cancelled Burke % (Auto) Cancelled Eos % (Auto) Cancelled Baso % (Auto) Cancelled Lymph # (Auto) Cancelled Burke # (Auto) Cancelled Eos # (Auto) Cancelled Baso # (Auto) Cancelled Abs Immat Gran (auto) Cancelled Absolute Neuts (auto) Cancelled Absolute Nucleated RBC 0.000 Nucleated RBC % (auto) 0.0 Neutrophils % (Manual) 54 Band Neutrophils % 15 H Lymphocytes % (Manual) 18 L Atypical Lymphs % (Man) Monocytes % (Manual) 10 Basophils % (Manual) 1 Metamyelocytes % 2 Abs Neuts (Manual) 2.7 Lymphocytes # (Manual) 0.7 L Atyp Lymphs # (Manual) Monocytes # (Manual) 0.4 Metamyelocytes # 0.1 Toxic Granulation Toxic Vacuolation PRESENT Platelet Estimate NORMAL Large Platelets Plt Morphology Comment NOTED RBC Morphology NOTED Spherocytes 1+ (0-2) Ovalocytes Becca Cells 2+ (3-5) Acanthocytes (Spur) PT 11.2 INR 1.0 Anion Gap 16 Estim Creat Clear Calc 19.0 Estimated GFR 17 Random Glucose 123 H Lactic Acid 2.1 H* Lactic Acid F/U @ 2Hr Calcium 10.3 H Magnesium 2.1 Total Bilirubin 0.6 Direct Bilirubin AST 109 H ALT 455 H Alkaline Phosphatase 166 H Total Protein 8.4 H Albumin 4.9 Lipase 23 Urine Color Dark Yellow Urine Appearance Turbid Urine pH 5.0 Ur Specific [place] >= 1.030 H Urine Protein 100 (2+) H Urine Glucose (UA) Negative Urine Ketones Trace Urine Blood Trace H Urine Nitrite Negative Ur Leukocyte Esterase Negative Urine RBC 6-10 H Urine WBC 6-10 Ur Squamous Epith Cells 3-5 Urine Bacteria 3+ Epithelial Casts Present Hyaline Casts 3-5 Granular Casts Present Acetaminophen < 3 COVID-19 (POONAM) Negative COVID-19 Clin Com See Note Hepatitis A IgM Ab Nonreactive Hep Bs Antigen Negative Hep Bs Antibody NONREACTIVE Hep B Core Total Ab Nonreactive Hepatitis C Ab (EIA) Nonreactive HIV 1&2 Ab/P24 Ag 4thGn Nonreactive Influenza Type A (ARTURO) Negative Influenza Type B (ARTURO) Negative Influenza A & B Note See Note 07/24/25 07/25/25 14:31 05:32 MCV 84.5 MCH 29.2 MCHC 34.6 RDW 12.1 Plt Count 174 MPV 11.8 Immature Gran % (Auto) Cancelled Neut % (Auto) Cancelled Lymph % (Auto) Cancelled Burke % (Auto) Cancelled Eos % (Auto) Cancelled Baso % (Auto) Cancelled Lymph # (Auto) Cancelled Burke # (Auto) Cancelled Eos # (Auto) Cancelled Baso # (Auto) Cancelled Abs Immat Gran (auto) Cancelled Absolute Neuts (auto) Cancelled Absolute Nucleated RBC 0.000 Nucleated RBC % (auto) 0.0 Neutrophils % (Manual) 39 L Band Neutrophils % 23 H Lymphocytes % (Manual) 21 Atypical Lymphs % (Man) 2 Monocytes % (Manual) 14 H Basophils % (Manual) 1 Metamyelocytes % Abs Neuts (Manual) 2.7 Lymphocytes # (Manual) 0.9 L Atyp Lymphs # (Manual) 0.1 Monocytes # (Manual) 0.6 Metamyelocytes # Toxic Granulation PRESENT Toxic Vacuolation Platelet Estimate NORMAL Large Platelets PRESENT Plt Morphology Comment NOTED RBC Morphology NOTED Spherocytes Ovalocytes 1+ (5-14) Griffith Cells 2+ (3-5) Acanthocytes (Spur) 1+ (0-2) PT INR Anion Gap 13 Estim Creat Clear Calc 31.7 Estimated GFR 31 Random Glucose 106 Lactic Acid Lactic Acid F/U @ 2Hr 1.6 Calcium 8.9 D Magnesium Total Bilirubin 0.5 Direct Bilirubin 0.2 AST 45 H ALT 233 H Alkaline Phosphatase 104 Total Protein 6.1 L Albumin 3.5 Lipase Urine Color Urine Appearance Urine pH Ur Specific [place] Urine Protein Urine Glucose (UA) Urine Ketones Urine Blood Urine Nitrite Ur Leukocyte Esterase Urine RBC Urine WBC Ur Squamous Epith Cells Urine Bacteria Epithelial Casts Hyaline Casts Granular Casts Acetaminophen COVID-19 (POONAM) COVID-19 Clin Com Hepatitis A IgM Ab Hep Bs Antigen Hep Bs Antibody Hep B Core Total Ab Hepatitis C Ab (EIA) HIV 1&2 Ab/P24 Ag 4thGn Influenza Type A (ARTURO) Influenza Type B (ARTURO) Influenza A & B Note Assessment and Plan (1) Colitis: Status: Acute Plan 55-year-old female with history of lupus, CKD 3, cervical cancer status post hysterectomy who presents to the emergency department with abdominal pain found to have colitis and elevated LFTs Sepsis due to probable colitis Continue empiric Zosyn GI panel pending Symptomatic support for nausea and pain Follow blood cultures ALEXIS on CKD3 no baseline creatinine, but cr clearance and GFR below stage 3 CKD IVF trend BMP Elevated LFTs no baseline for comparison ?due to sepsis CT scan with normal appearing liver; h/o cholecystectomy and no biliary duct dilation on imaging trend LFTs lupus hold hydroxychloroquine in the setting of elevated LFTs and acute infection DVT prophylaxis-heparin Code status-full code reason for continued hospitalization:cultures pending Quality Stroke Does the patient have a stroke diagnosis?: No VTE Prior VTE?: No VTE Risk Level:: Medical - moderate - high VTE Device Contraindication: N/A - Device Ordered VTE Drug Contraindication: N/A - Med Ordered
[2025-07-25 11:04] LABS: Shigella sp./EIEC Detected (Not Detect.)
[2025-07-25 16:05] VITALS: BP 109/62; PULSE 71; RESP 18; TEMP 37.1; O2SAT 100
[2025-07-25 19:25] VITALS: BP 128/69; PULSE 86; RESP 17; TEMP 36.8; O2SAT 99
[2025-07-26 04:00] VITALS: BP 132/79; PULSE 71; RESP 16; TEMP 37.1; O2SAT 99
[2025-07-26 06:13] LABS: Hematocrit 29.6 % (37.0-47.0); Hemoglobin 10.2 g/dl (12.0-16.0); Mean Corpuscular HGB Conc 34.5 g/dl (31.0-35.0); Mean Corpuscular Hemoglobin 29.1 pg (27.0-33.0); Mean Corpuscular Volume 84.3 fL (80.0-98.0); NRBC Abs Auto 0.000 X10*3/uL (0.0-0.012); NRBC Pct Auto 0.0 /100WBC (0.0-0.2); Platelet Count 191 X10*3/uL (160-400); Red Blood Count 3.51 X10*6/uL (4.20-5.50); White Blood Count 4.4 X10*3/uL (4.8-10.8)
[2025-07-26 06:17] LABS: Alanine Aminotransferase 154 U/L (0-31); Albumin Level 3.3 g/dL (3.5-5.0); Alkaline Phosphatase 90 U/L (39-117); Anion Gap 12 (12-20); Aspartate Amino Transferase 35 U/L (5-31); Blood Urea Nitrogen 8 mg/dL (9-16); Calcium 8.5 mg/dL (8.4-10.2); Carbon Dioxide 23 mmol/L (22-29); Chloride 112 mmol/L (96-108); Creatinine Clr Calc Pharmacy 62.3; Estimated Glomerular Filt Rate > 60; Magnesium 1.8 mg/dL (1.6-2.6); Potassium 3.1 mmol/L (3.3-5.1); Sodium 144 mmol/L (135-145); Total Protein 5.7 g/dL (6.5-8.0)
[2025-07-26 08:00] VITALS: BP 174/96; PULSE 75; RESP 18; TEMP 36.1; O2SAT 98
[2025-07-26] MEDS: Potassium Chloride ER 20 MEQ TAB.ER.PRT 40 MEQ PO (08:00)
[2025-07-26] MEDS: Lactated Ringers 1,000 ML 125 ML IVCONT ×2 (08:01→15:05)
--- NOTE | 2025-07-26 09:37 | P.PNIM_ITS ---
Subjective Subjective Date of Service: 07/26/25 Interval History: Ongoing abdominal pain and diarrhea Physical Exam 2 Exam: Exam: General: AO X 3 Resp: CTA bilateral, no accessory muscles used CVS: S1,S2,RRR GI: soft, tender, non distended Neuro: motor grossly intact, alert Psych: appropriate affect, appropriate insight Vital Signs: Vital Signs: Last Vital Signs Temp 96.9 F 07/26/25 08:00 Pulse 75 07/26/25 08:00 Resp 18 07/26/25 08:00 BP 174/96 H 07/26/25 08:00 Pulse Ox 98 07/26/25 08:00 O2 Del Method Room Air 07/26/25 08:00 BMI result Body Mass Index 21.9 Objective Data Active Medications Calcium Carbonate (Calcium Carbonate 750 Mg Tab.Chew) 750 mg PO Q4H PRN PRN Reason: Heartburn Last Admin: 07/24/25 21:30 Dose: 750 mg Documented By: CHUYITA Ceftriaxone Sodium (Ceftriaxone Sodium 1 Gm Vial) 1 gm IVPUSH Q24H PENDING SALE TO [facility] Last Admin: 07/26/25 08:00 Dose: 1 gm Documented By: JORGE Heparin Sodium (Porcine) (Heparin Sodium,Porcine 5,000 Unit/Ml Vial) 5,000 unit SUBCUT Q12H [facility]END[facility] TO [facility] Last Admin: 07/26/25 04:24 Dose: 5,000 unit Documented By: DARION Lactated Ringer's (Lr) 1,000 mls @ 125 mls/hr IVCONT .Q8H [facility]END[facility] TO [facility] Last Admin: 07/26/25 08:01 Dose: 125 mls/hr Documented By: JORGE Magnesium Hydroxide (Milk Of Magnesia 30 Ml Oral.Susp) 30 ml PO DAILY PRN PRN Reason: Constipation Melatonin (Melatonin 3 Mg Tablet) 6 mg PO BEDTIME PRN PRN Reason: Insomnia Last Admin: 07/24/25 21:31 Dose: 6 mg Documented By: CHUYITA Morphine Sulfate (Morphine Sulfate 2 Mg/Ml Cartridge) 2 mg IVPUSH Q4H PRN; Protocol PRN Reason: Pain, Severe (Pain Scale 7-10) Last Admin: 07/24/25 18:32 Dose: 2 mg Documented By: GIOVANY Ondansetron HCl (Ondansetron Hcl 4 Mg/2 Ml Vial) 4 mg IVPUSH Q8H PRN PRN Reason: Nausea and Vomiting Last Admin: 07/24/25 16:30 Dose: 4 mg Documented By: BRYAN Sodium Chloride (0.9 % Sodium Chloride Flush 3 Ml Syringe) 3 ml IVFLUSH QSHIFT [facility] Last Admin: 07/26/25 07:29 Dose: Not Given Documented By: JORGE Non-Admin Reason: IV Running Labs 07/26/25 05:50 07/26/25 05:50 Labs: Laboratory Results - last 24 hr 07/24/25 07/26/25 22:24 05:50 MCV 84.3 MCH 29.1 MCHC 34.5 RDW 12.2 Plt Count 191 MPV 11.3 Absolute Nucleated RBC 0.000 Nucleated RBC % (auto) 0.0 Anion Gap 12 Estim Creat Clear Calc 62.3 Estimated GFR > 60 Random Glucose 99 Calcium 8.5 Magnesium 1.8 Total Bilirubin 0.4 Direct Bilirubin 0.1 AST 35 H ALT 154 H Alkaline Phosphatase 90 Total Protein 5.7 L Albumin 3.3 L Stl C. cayetanensis PCR Not Detected Stool Rotavirus A PCR Not Detected Stl Adenov F 40/41 PCR Not Detected Stool Astrovirus (PCR) Not Detected Stool Campylobacter PCR Not Detected Stool Cryptosporidium PCR Not Detected Stl Sh Tox Pr E STEC PCR Not Detected Stool E coli O157 PCR Not applicable Stl Enterotoxigenic E PCR Not Detected Stool EPEC (PCR) Not Detected Stool EAEC (PCR) Not Detected Stl E. histolytica PCR Not Detected Stool Giardia Lamblia PCR Not Detected Stl P. shigelloides PCR Not Detected Stool Salmonella PCR Not Detected Stool Sapovirus (PCR) Not Detected Stl Shigella/EIEC PCR Detected A St Y.enterocolitica PCR Not Detected Stool Vibrio (PCR) Not Detected Stl Vibrio cholerae PCR Not Detected Stl Norovirus GI/GII PCR Not Detected Microbiology Microbiology Results: Microbiology 07/24/25 12:31 Blood Culture - Preliminary Blood - Venous No growth after 24 hours. 07/24/25 11:41 Blood Culture - Preliminary Blood - Venous No growth after 24 hours. 07/24/25 Unknown Urine Culture - Preliminary Urine clean catch - Clean Catch Midstream Culture in progress. Assessment and Plan (1) Colitis: Status: Acute Plan 55-year-old female with history of lupus, CKD 3, cervical cancer status post hysterectomy who presents to the emergency department with abdominal pain found to have colitis and elevated LFTs Sepsis due to probable colitis stool positive for shigella/eiec change to rocephin Symptomatic support for nausea and pain ALEXIS resolved Elevated LFTs no baseline for comparison ?due to sepsis CT scan with normal appearing liver; h/o cholecystectomy and no biliary duct dilation on imaging trend LFTs acute hypokalemia replace and monitor lupus hold hydroxychloroquine in the setting of elevated LFTs and acute infection DVT prophylaxis-heparin Code status-full code reason for continued hospitalization:still with abd pain, not tolerating po Quality Stroke Does the patient have a stroke diagnosis?: No VTE Prior VTE?: No VTE Risk Level:: Medical - moderate - high VTE Device Contraindication: N/A - Device Ordered VTE Drug Contraindication: N/A - Med Ordered
[2025-07-26 13:23] VITALS: BP 154/86
[2025-07-26 15:53] VITALS: BP 147/75; PULSE 76; RESP 14; TEMP 36.9; O2SAT 100
[2025-07-26] MEDS: 0.9 % Sodium Chloride Flush 3 ML SYRINGE IVFLUSH (19:26)
[2025-07-26 20:00] VITALS: BP 143/74; PULSE 80; RESP 17; TEMP 36.6; O2SAT 100
[2025-07-27 04:00] VITALS: BP 132/81; PULSE 87; RESP 16; TEMP 36.4; O2SAT 98
[2025-07-27 06:35] LABS: Hematocrit 35.7 % (37.0-47.0); Hemoglobin 12.1 g/dl (12.0-16.0); Mean Corpuscular HGB Conc 33.9 g/dl (31.0-35.0); Mean Corpuscular Hemoglobin 29.2 pg (27.0-33.0); Mean Corpuscular Volume 86.0 fL (80.0-98.0); NRBC Abs Auto 0.000 X10*3/uL (0.0-0.012); NRBC Pct Auto 0.0 /100WBC (0.0-0.2); Platelet Count 275 X10*3/uL (160-400); Red Blood Count 4.15 X10*6/uL (4.20-5.50); White Blood Count 8.0 X10*3/uL (4.8-10.8)
[2025-07-27 06:49] LABS: Anion Gap 15 (12-20); Blood Urea Nitrogen 4 mg/dL (9-16); Carbon Dioxide 24 mmol/L (22-29); Chloride 107 mmol/L (96-108); Creatinine Clr Calc Pharmacy 63.8; Estimated Glomerular Filt Rate > 60; Magnesium 1.6 mg/dL (1.6-2.6); Potassium 3.0 mmol/L (3.3-5.1); Sodium 143 mmol/L (135-145)
[2025-07-27 06:56] LABS: Calcium 9.5 mg/dL (8.4-10.2)
[2025-07-27] MEDS: Potassium Chloride ER 20 MEQ TAB.ER.PRT 40 MEQ PO (07:40)
[2025-07-27] MEDS: Magnesium Sulfate/H2O 2 GM/50 ML PIGGYBACK IV (07:41)
[2025-07-27 08:00] VITALS: BP 175/86; PULSE 77; RESP 18; TEMP 36.6; O2SAT 100
--- NOTE | 2025-07-27 08:45 | P.DS_ITS ---
DS: Providers Provider Date of Service: 07/27/25 Date of admission: 07/24/25 15:12 Date of discharge: 07/27/25 Primary care physician: ALONDRA Mark DS: Diagnosis Discharge Diagnosis (1) Colitis: Status: Acute DS: Summary Hospital Course Hospital Course: from initial hpi: 55-year-old female with a history of lupus, CKD who presents to the emergency department with multiple complaints. She reports headache, body aches, generalized abdominal pain since Monday. Her abdominal pain is associated with vomiting and numerous episodes of diarrhea. She reports decreased oral intake fatigue. She also reports a fever of 101 at home. Today she came to the emergency department due to her persistent symptoms. Lab work was significant for creatinine of 2.84, leukopenia with a white count of 3.9 with 15% bands. Initial lactic acid was elevated at 2.1, this improved to 1.6 after IV fluid. Her LFTs were also elevated. CT scan in the emergency department showed concern over colitis. She was treated with IV Zosyn and she will be admitted for further management. hospital course: Patient was admitted for sepsis due to colitis. Stool was positive for Shigella/entero invasive E coli was treated with ceftriaxone and symptoms improved on discharge will continue 5 more days of Ceftin. For acute kidney injury received IV fluids and resolved. For urinary tract infection treated with antibiotics as above, urine culture grew E coli and Klebsiella sensitive to cephalosporins. Acute hypokalemia was replaced. For history of lupus hydroxychloroquine was held but can be restarted on discharge. Time Attestation Discharge Coordination Time (in mins): 34 Quality: Safe Use of Opioids Does Pt have an Active Cancer Diagnosis on the Problem List?: No Quality: Stroke Does the patient have a stroke diagnosis?: No Physical Exam Exam: Exam: General: AO X 3 Resp: CTA bilateral, no accessory muscles used CVS: S1,S2,RRR GI: soft, non tender, non distended Neuro: motor grossly intact, alert Psych: appropriate affect, appropriate insight Vital Signs: Vital Signs: Last Vital Signs Temp 97.8 F 07/27/25 08:00 Pulse 77 07/27/25 08:00 Resp 18 07/27/25 08:00 BP 175/86 H 07/27/25 08:00 Pulse Ox 100 07/27/25 08:00 O2 Del Method Room Air 07/27/25 08:00 BMI result Body Mass Index 21.9 DS: Data Data Completed and Pending Labs on day of discharge: Laboratory Results - last 24 hr 07/27/25 07/27/25 06:20 06:21 WBC 8.0 RBC 4.15 L Hgb 12.1 Hct 35.7 L D MCV 86.0 MCH 29.2 MCHC 33.9 RDW 12.2 Plt Count 275 D MPV 10.9 Absolute Nucleated RBC 0.000 Nucleated RBC % (auto) 0.0 Sodium 143 Potassium 3.0 L Chloride 107 Carbon Dioxide 24 Anion Gap 15 BUN 4 L Creatinine 0.85 Estim Creat Clear Calc 63.8 Estimated GFR > 60 Random Glucose 110 Calcium 9.5 D Magnesium 1.6 Preliminary micro results at discharge 07/24/25 12:31 Blood Culture - Preliminary Blood - Venous No growth after 48 hours. 07/24/25 11:41 Blood Culture - Preliminary Blood - Venous No growth after 48 hours. Discharge Plan Discharge Anticipated Discharge Date/Time: 07/27/25 08:43 Patient Disposition: Home, Self-Care Discharge Diagnosis: colitis Referrals: Neisha Knott FNP [Primary Care Provider, Internal Medicine] - 1 Week Discharge Medications: New cefuroxime axetil 500 mg tablet 500 mg PO BID Qty: 10 0RF Continued hydroxychloroquine 200 mg tablet 400 mg PO DAILY Discharge Orders: Discharge Order (Routine); Ordered 07/27/25 Ordered By: Jose R Macias Diet: Advance to usual diet Activity on Discharge: As tolerated Stand Alone Forms: Patient Portal Discharge page Print Language: Sammarinese Care Plan Goals: recovery Health Concerns: colitis, uti Plan of Treatment: 5 dys ceftin Assessment: see above
--- NOTE | 2025-07-27 08:57 | MHC.CM.PN ---
Patient medically cleared for dc home self care via private transport
[2025-07-27 08:59] VITALS: BP 162/70
[2025-07-27 09:52] VITALS: BP 140/80
== END 2025-07-27 10:50 | disposition home or self-care (01) | DRG 720 ==
LOC: HO.ED 14:47 → HO.EDOVER 15:13 → HO.S3 16:47
PROVIDERS: Registered Nurse Emergency; Admitting Provider Physician Assistant Medical; Emergency Provider Emergency Medicine; PCP Nurse Practitioner Family; Visit Provider Internal Medicine
DX: A41.9 Sepsis, unspecified organism (principal); N17.9 Acute kidney failure, unspecified; M32.9 Systemic lupus erythematosus, unspecified; A04.2 Enteroinvasive Escherichia coli infection; A03.9 Shigellosis, unspecified; E87.6 Hypokalemia; K52.9 Noninfective gastroenteritis and colitis, unspecified; N18.30 Chronic kidney disease, stage 3 unspecified; Z20.822 Contact with and (suspected) exposure to COVID-19; Z85.41 Personal history of malignant neoplasm of cervix uteri; Z79.899 Other long term (current) drug therapy
CPT/HCPCS: 36415; 71250; 74176; 80048; 80053; 80076; 80143; 81001; 83605; 83690; 83735; 85007; 85025; 85027; 85610; 86704; 86706; 86709; 86803; 87040; 87086; 87088; 87186; 87340; 87389; 87502; 87507; 87635; 99285; J0696; J1644; J2270; J2405; J2543; J3475; J7120

== ENCOUNTER → 2025-07-24 12:43 | Outpatient (BNV) | payer BC, SELFPAY | PROVIDERS: Emergency Provider Emergency Medicine; PCP Nurse Practitioner Family; Visit Provider Radiology Diagnostic Radiology | DX: K56.7 Ileus, unspecified (principal); R91.1 Solitary pulmonary nodule | CPT/HCPCS: 71250; 74176 ==

== ENCOUNTER → 2025-07-24 15:12 | Outpatient (BNV) | payer BC, SELFPAY | PROVIDERS: Admitting Provider Physician Assistant Medical; Emergency Provider Emergency Medicine; PCP Nurse Practitioner Family; Visit Provider Physician Assistant Medical | DX: K52.9 Noninfective gastroenteritis and colitis, unspecified (principal) | CPT/HCPCS: 99239 ==

== ENCOUNTER 2025-08-22 12:47 | Inpatient (IN) | payer BC, SELFPAY ==
[2025-08-22] VITALS (7 sets, daily range): BP systolic 130–184; BP diastolic 74–100; PULSE 73–103; RESP 16–20; TEMP 36.9–37.8; O2SAT 96–100; BMI 24.8
--- NOTE | ~2025-08-22 | CT_ITS ---
EXAMINATION: CT ABDOMEN AND PELVIS WITHOUT CONTRAST CLINICAL INFORMATION: Abdominal pain COMPARISON: July 24, 2025 TECHNIQUE: Multidetector volumetric imaging was performed from the superior aspect of the liver through the pubic symphysis. Sagittal and coronal reformatted images were obtained on the technologist's workstation. This CT examination was performed using dose optimization techniques as appropriate, variously including the following: *Automated exposure control *Adjustment of mA and/or kV according to patient size (this includes techniques or standardized protocols for targeted exams where dose is matched to indication/reason for exam; i.e. extremities or head) *Use of iterative reconstruction technique FINDINGS: LUNG BASES: The visualized lung bases are unremarkable. LIVER, GALLBLADDER, AND BILIARY TREE: The liver is normal in size, shape, and attenuation. No focal hepatic lesion or biliary ductal dilatation is present. The gallbladder surgically absent. There are clips in the gallbladder fossa. PANCREAS: Unremarkable. SPLEEN: Unremarkable. ADRENAL GLANDS: Unremarkable. KIDNEYS AND URETERS: The kidneys are normal in size, shape, and attenuation. No hydronephrosis, hydroureter, or calculi seen. No perinephric stranding. BLADDER: Unremarkable. GASTROINTESTINAL TRACT: There is mild fat stranding and probable wall thickening involving the right colon in the proximal half of the transverse colon increased since the prior. A retrocecal appendix is unremarkable. There is an adjacent loop of small bowel in the central abdomen that is gas-filled with air-fluid level that is inflamed and not stairstepping. ABDOMINAL WALL: No significant hernia is appreciated. LYMPH NODES: Normal. VASCULAR: Unremarkable. PELVIC VISCERA: Unremarkable. OSSEOUS STRUCTURES: Focal sclerotic lesion in the posterior left L3 vertebral body measures 1230 Hounsfield units which is most consistent with a benign bone island. There is a similar lesion in the posterior right acetabulum. CT/CT abdomen pelvis wo IV con IMPRESSION: Worsening colitis. There is increased fat stranding in bowel wall thickening in the right colon and proximal half the transverse colon. This could be related to infection, ischemia, inflammatory bowel disease, and less likely neoplasm. There is short segment of distended small bowel in the central abdomen that is probably secondary to a paralytic ileus related to changes in the colon rather than a low-grade small bowel junction. Fleischner guidelines were followed. Electronically signed by: Demond Bowman MD 08/22/2025 04:56 PM [facility]
[2025-08-22 13:56] LABS: MANUAL DIFF FLAG NO
--- NOTE | 2025-08-22 14:00 | PC.NURSE ---
jone from [facility] urgent care w/ concern of c-diff. recently admitted x 1 month ago for colitis. pt represents today c/o worsening lower adb pain radiating to epigastric area x 3 days. associated nausea and multiple episodes of bloody diarrhea x 30 days. dizziness w/ exertion. otherwise denies any episodes of fevers/chills/vomiting/urinary sx. +shigella in stool/+e.coli in urine x last admission. currently taking fidaxomicin. hx CKD/lupus. upon ED arrival - pt a&ox4. vss and up to date aside from being hypertensive. 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 20gIV placed in the right AC - labs obtained/sent to lab. pt otherwise on RA w/o difficulty - no sob/wob noted. respirations even/unlabored. plan of care ongoing. call gu placed within reach.
[2025-08-22 14:08] LABS: Hematocrit 37.2 % (37.0-47.0); Hemoglobin 12.2 g/dl (12.0-16.0); Imm Gran Abs Auto 0.03 X10*3/uL (0.00-0.03); Imm Gran Pct Auto 0.3 % (0.0-0.4); Lymphocytes Absolute Auto 1.2 X10*3/uL (1.2-4.9); Mean Corpuscular HGB Conc 32.8 g/dl (31.0-35.0); Mean Corpuscular Hemoglobin 28.9 pg (27.0-33.0); Mean Corpuscular Volume 88.2 fL (80.0-98.0); NRBC Abs Auto 0.000 X10*3/uL (0.0-0.012); NRBC Pct Auto 0.0 /100WBC (0.0-0.2); Platelet Count 292 X10*3/uL (160-400); Red Blood Count 4.22 X10*6/uL (4.20-5.50); White Blood Count 10.5 X10*3/uL (4.8-10.8)
--- NOTE | 2025-08-22 15:18 | ED.GENADULT ---
HPI - General Adult General Chief complaint: Abdominal Pain Stated complaint: abd pain, blood in stool Time Seen by Provider: 08/22/25 13:06 Source: EMS Mode of arrival: ambulatory Limitations: no limitations History of Present Illness ED Provider: MADI Chandra HPI narrative: This is a 55-year-old female past medical history significant for colitis, CKD, lupus she presents today with significant lower abdominal discomfort. She tells me she was admitted with colitis for about a month here, she feels like her colitis is back. She reports she has been having the ?runs ?. She states that they have never really gone away. She reports that she is overall feeling unwell. Today she noted bloody diarrhea however prior to this her stool has not really been bloody. Previously she has had Shigella in her stool and E coli in her urine. Currently taking fidaxomicin. Denies chest pain, shortness of breath, vomiting, headache, vision changes, weakness, dizziness. Related Data Home Medications ?Medication ?Instructions ?Recorded ?Confirmed hydroxychloroquine 200 mg tablet 400 mg PO DAILY 07/24/25 07/24/25 Previous Rx's ?Medication ?Instructions ?Recorded cefuroxime axetil 500 mg tablet 500 mg PO BID #10 tabs 07/27/25 Allergies Allergy/AdvReac Type Severity Reaction Status Date / Time acetaminophen (From Percocet) Allergy Abdominal Verified 08/22/25 12:55 Pain oxycodone (From Percocet) Allergy Abdominal Verified 08/22/25 12:55 Pain Review of Systems Review of Systems: Yes all other systems are reviewed and are negative PMFSH Past Medical History Attestation statement: The following information was validated with the patient. Source: old records reviewed and nursing notes reviewed Medical History Cervical cancer CKD (chronic kidney disease) stage 3, GFR 30-59 ml/min Lupus (systemic lupus erythematosus) Surgical History S/P laparoscopic cholecystectomy H/O: hysterectomy Social History Social History Household Members: Children Housing: House Do you presently have visiting nurse or other home services: No Patient Tobacco Use Status: Never used Tobacco Smoked in Last 30 Days: No Use of substances other than those prescribed or required for medical reasons: No Advance Directives: Yes Advance Directives on File: Yes Advance Directives Date on File: 07/29/25 Do you have a plan to hurt others: No Plan Patient : No service: No Physical Exam ED Exam Exam: Appearance: Alert.? Oriented X3.? No acute distress.? Head: Normocephalic, atraumatic, no step-offs or deformities Eyes: Pupils equal, round and reactive to light.? Neck: Normal inspection.? Neck supple.? CVS: Normal heart rate and rhythm.? Pulses normal.? Respiratory: No respiratory distress.? Breath sounds normal.? Abdomen: Soft and nontender.? Skin: Skin warm and dry.? Normal skin color.? Normal skin turgor.? Extremities: No lower extremity edema.? No calf ttp. 5/5 strength to bilateral upper and lower extremities Neuro: Oriented X 3.? No motor deficit.? No sensory deficit. CN 2-12 intact Vital Signs: Vital Signs - 24 hr 08/22/25 12:53 08/22/25 16:41 08/22/25 17:22 Temperature 98.5 F 98.6 F 100.1 F Pulse Rate 85 81 103 H Respiratory Rate 18 18 16 Blood Pressure 184/85 H 130/96 H 156/75 H Pulse Oximetry 98 100 96 Oxygen Delivery Method Room Air Room Air Room Air BMI result Body Mass Index 24.8 vss Course Reevaluation(s) Reevaluation #1: I am not seeing a 1 month long admission I am seeing an admission here to this facility from 07 24-07 27, she presented to the emergency department with multiple complaints including headache, body aches and pains, generalized abdominal pain ongoing for the past few days also reported vomiting and diarrhea, poor p.o. intake. Subjective fevers at home. Patient was noted to have elevated creatinine 2.84, leukopenia with white count of 3.9 with 15% bands. Lactic was elevated at 2.1 and then improved after IV fluids. LFTs were elevated. CT scan showed concern over colitis. She was treated with Zosyn. She tells me that her PCP was 1 that prescribed her current antibiotic. Time: 15:26 Reevaluation #2: Sign-out will be given to Fara pending UA, OBS, CTs Time: 16:36 Reevaluation #3: CT abdomen pelvis wo IV con IMPRESSION: Worsening colitis. There is increased fat stranding in bowel wall thickening in the right colon and proximal half the transverse colon. This could be related to infection, ischemia, inflammatory bowel disease, and less likely neoplasm. There is short segment of distended small bowel in the central abdomen that is probably secondary to a paralytic ileus related to changes in the colon rather than a low-grade small bowel junction. Fleischner guidelines were followed. > lactic acid obtain an elevated to 2.1. Plan to admit to hospitalist for further management. Patient does not meet sepsis criteria at this time Medications Administered Discontinued Medications Generic Name Dose Route Start Last Admin Trade Name Freq PRN Reason Stop Dose Admin Sodium Chloride 1,000 mls @ 999 mls/hr 08/22/25 16:45 08/22/25 17:51 Ns IV 08/22/25 17:45 Infused .Q1H1M HEATHER Infusion Sodium Chloride 1,000 mls @ 999 mls/hr 08/22/25 18:00 08/22/25 17:53 Ns IV 08/22/25 19:00 999 mls/hr .Q1H1M HEATHER Administration Ketorolac Tromethamine 15 mg 08/22/25 16:36 08/22/25 16:43 Ketorolac Tromethamine 15 Mg/Ml Vial IVPUSH 08/22/25 16:37 15 mg ONCE ONE Administration Morphine Sulfate 2 mg 08/22/25 17:48 08/22/25 17:51 Morphine Sulfate 4 Mg/Ml Cartridge IVPUSH 08/22/25 17:49 Not Given ONCE ONE Protocol Ondansetron HCl 4 mg 08/22/25 16:37 08/22/25 16:43 Ondansetron Hcl 4 Mg/2 Ml Vial IVPUSH 08/22/25 16:38 4 mg ONCE ONE Administration Medical Decision Making Medical Decision Making MDM Narrative: 55-year-old female presents with lower abdominal pain she reports she was recently admitted for a month for colitis she also reports she had Shigella and a coli in her urine. Patient poor historian will further look into her medical history Physical exam diffuse lower abdominal discomfort. Hx and pe concerning for colitis an possible GI bleed. Will rule out anemia, electrolyte abnormalities. Will also rule out other intra-abdominal etiologies. Unlikely acute abdomen appendicitis, cholecystitis, pancreatitis, diverticulitis. No signs of obstruction Plan at this time labs, imaging Differential Diagnosis Differential Diagnoses: The differential diagnosis associated with the presentation includes (Hx and pe concerning for colitis an possible GI bleed. Will rule out anemia, electrolyte abnormalities. Will also rule out other intra-abdominal etiologies. Unlikely acute abdomen appendicitis, cholecystitis, pancreatitis, diverticulitis. No signs of obstruction) Admission/Observation Consideration of admission/observation: Escalation of care including admission/observation considered (possible ) Lab Data MDM Lab Attestation statement: I reviewed the patient's lab results. 08/22/25 13:52 08/22/25 15:11 Labs: Lab Results 08/22/25 08/22/25 08/22/25 Range/Units 13:52 15:11 18:17 WBC 10.5 (4.8-10.8) X10*3/uL RBC 4.22 (4.20-5.50) X10*6/uL Hgb 12.2 (12.0-16.0) g/dl Hct 37.2 (37.0-47.0) % MCV 88.2 (80.0-98.0) fL MCH 28.9 (27.0-33.0) pg MCHC 32.8 (31.0-35.0) g/dl RDW 13.4 (11.0-16.0) % Plt Count 292 (160-400) X10*3/uL MPV 10.3 (9.4-12.3) fL Immature Gran % (Auto) 0.3 (0.0-0.4) % Neut % (Auto) 83.6 H (45-73) % Lymph % (Auto) 11.5 L (20-40) % [place] % (Auto) 3.2 (2-11) % Eos % (Auto) 1.0 (0-4) % Baso % (Auto) 0.4 (0-2) % Lymph # (Auto) 1.2 (1.2-4.9) X10*3/uL [place] # (Auto) 0.3 (0.1-1.2) X10*3/uL Eos # (Auto) 0.1 (0.0-0.4) X10*3/uL Baso # (Auto) 0.0 (0.0-0.2) X10*3/uL Abs Immat Gran (auto) 0.03 (0.00-0.03) X10*3/uL Absolute Neuts (auto) 8.8 H (2.0-8.3) x10*3/uL Absolute Nucleated RBC 0.000 (0.0-0.012) X10*3/uL Nucleated RBC % (auto) 0.0 (0.0-0.2) /100WBC Sodium 142 (135-145) mmol/L Potassium 4.2 D (3.3-5.1) mmol/L Chloride 107 (96-108) mmol/L Carbon Dioxide 28 (22-29) mmol/L Anion Gap 11 L (12-20) BUN 6 L (9-16) mg/dL Creatinine 0.76 (0.5-1.4) mg/dL Estim Creat Clear Calc 71.3 Estimated GFR > 60 Random Glucose 96 (60-115) mg/dL Lactic Acid 2.1 H* (0.5-2.0) mmol/L Calcium 9.5 (8.4-10.2) mg/dL Magnesium 2.1 (1.6-2.6) mg/dL Total Bilirubin 0.7 (0.0-1.0) mg/dL AST 27 (5-31) U/L ALT 24 (0-31) U/L Alkaline Phosphatase 93 (39-117) U/L Total Protein 7.3 (6.5-8.0) g/dL Albumin 4.3 (3.5-5.0) g/dL Lipase 41 (8-78) U/L Urine Color Urine Appearance Urine pH (5.0-9.0) Ur Specific [place] (1.005-1.025) Urine Protein (Neg-Trace) mg/dL Urine Glucose (UA) (Negative) mg/dL Urine Ketones (Negative) mg/dL Urine Blood (Negative) Urine Nitrite (Negative) Ur Leukocyte Esterase (Negative) Urine Test (NEGATIVE) 08/22/25 Range/Units 18:38 WBC (4.8-10.8) X10*3/uL RBC (4.20-5.50) X10*6/uL Hgb (12.0-16.0) g/dl Hct (37.0-47.0) % MCV (80.0-98.0) fL MCH (27.0-33.0) pg MCHC (31.0-35.0) g/dl RDW (11.0-16.0) % Plt Count (160-400) X10*3/uL MPV (9.4-12.3) fL Immature Gran % (Auto) (0.0-0.4) % Neut % (Auto) (45-73) % Lymph % (Auto) (20-40) % [place] % (Auto) (2-11) % Eos % (Auto) (0-4) % Baso % (Auto) (0-2) % Lymph # (Auto) (1.2-4.9) X10*3/uL [place] # (Auto) (0.1-1.2) X10*3/uL Eos # (Auto) (0.0-0.4) X10*3/uL Baso # (Auto) (0.0-0.2) X10*3/uL Abs Immat Gran (auto) (0.00-0.03) X10*3/uL Absolute Neuts (auto) (2.0-8.3) x10*3/uL Absolute Nucleated RBC (0.0-0.012) X10*3/uL Nucleated RBC % (auto) (0.0-0.2) /100WBC Sodium (135-145) mmol/L Potassium (3.3-5.1) mmol/L Chloride (96-108) mmol/L Carbon Dioxide (22-29) mmol/L Anion Gap (12-20) BUN (9-16) mg/dL Creatinine (0.5-1.4) mg/dL Estim Creat Clear Calc Estimated GFR Random Glucose (60-115) mg/dL Lactic Acid (0.5-2.0) mmol/L Calcium (8.4-10.2) mg/dL Magnesium (1.6-2.6) mg/dL Total Bilirubin (0.0-1.0) mg/dL AST (5-31) U/L ALT (0-31) U/L Alkaline Phosphatase (39-117) U/L Total Protein (6.5-8.0) g/dL Albumin (3.5-5.0) g/dL Lipase (8-78) U/L Urine Color Yellow Urine Appearance Clear Urine pH 7.0 (5.0-9.0) Ur Specific [place] 1.010 (1.005-1.025) Urine Protein Negative (Neg-Trace) mg/dL Urine Glucose (UA) Negative (Negative) mg/dL Urine Ketones Negative (Negative) mg/dL Urine Blood Negative (Negative) Urine Nitrite Negative (Negative) Ur Leukocyte Esterase Negative (Negative) Urine Test NEGATIVE (NEGATIVE) Independent Interpretation I performed an independent interpretation of an: CT Scan Radiology Impression Discussion of test interpretation with radiology: I have reviewed the radiologist's reading. External Record Review External record reviewed: Inpatient record, Office record, Outpatient record, Prior outpatient labs, Prior outpatient radiology, Primary care record and Outside ED record Chronic Conditions Patient?s care impacted by: Other Critical Care Time Critical Care Time Critical Care Time: Yes Total Critical Care Time: 35 Attestation: I have personally provided critical care time exclusive of time spent on separately billable procedures. Time includes review of lab data, radiology results, discussion with consultants, and monitoring for potential decompensation. Intervention performed as documented. Discharge Plan Discharge Clinical Impression: Colitis, C. difficile colitis Patient Disposition: Admitted As Inpatient Print Language: Citizen Of [place]
[2025-08-22 15:34] LABS: Alanine Aminotransferase 24 U/L (0-31); Albumin Level 4.3 g/dL (3.5-5.0); Alkaline Phosphatase 93 U/L (39-117); Anion Gap 11 (12-20); Aspartate Amino Transferase 27 U/L (5-31); Blood Urea Nitrogen 6 mg/dL (9-16); Calcium 9.5 mg/dL (8.4-10.2); Carbon Dioxide 28 mmol/L (22-29); Chloride 107 mmol/L (96-108); Creatinine Clr Calc Pharmacy 71.3; Estimated Glomerular Filt Rate > 60; Lipase 41 U/L (8-78); Magnesium 2.1 mg/dL (1.6-2.6); Potassium 4.2 mmol/L (3.3-5.1); Sodium 142 mmol/L (135-145); Total Protein 7.3 g/dL (6.5-8.0)
--- NOTE | 2025-08-22 16:46 | PC.NURSE ---
IVF/medication administered per provider order. effectiveness pending.
--- NOTE | 2025-08-22 17:53 | PC.NURSE ---
additional IVF infusing per provider order. pt refused morphine administration d/t previous administration making her feel unwell x last visit. pending admission at this time.
[2025-08-22 18:51] LABS: Appearance Urine Clear; Glucose Urine UA Negative (Negative); PH 7.0 (5.0-9.0); Specific Gravity - Urine 1.010 (1.005-1.025)
[2025-08-22 18:52] LABS: UPreg QC Valid YES
--- NOTE | 2025-08-22 19:44 | PM.IMHP ---
History of Present Illness Date of Service: 08/22/25 Chief Complaint: Abdominal pain 55-year-old female with a past medical history of lupus, CKD; depression; presented to the hospital with a chief complaint of abdominal pain. Patient mentioned that for about a month she has been having diarrhea and has been diagnosed with colitis; on August 11 she was told that she has C diff. prior to that she was shigella can positive. Today she had increased abdominal pain. Her PCP prescribed fidaxomicin today. Given increased pain she came to the hospital for further evaluation. Denies any blood in the stool. Reports having multiple episodes of loose watery stool for the past few days. Today she had at least 10 episodes. Patient denies any chest pain or palpitations. Denies any fevers. Review of all other systems is negative except mentioned above ER course: Per ER team, patient notes diffuse abdominal tenderness; no guarding or rigidity; CT abdomen pelvis showed worsening colitis. [facility] Medical History Cervical cancer CKD (chronic kidney disease) stage 3, GFR 30-59 ml/min Lupus (systemic lupus erythematosus) Surgical History S/P laparoscopic cholecystectomy H/O: hysterectomy Social History Household Members: Children Housing: House Do you presently have visiting nurse or other home services: No Patient Tobacco Use Status: Never used Tobacco Smoked in Last 30 Days: No Use of substances other than those prescribed or required for medical reasons: No Advance Directives: Yes Advance Directives on File: Yes Advance Directives Date on File: 07/29/25 Do you have a plan to hurt others: No Plan Nutrition Risks: Acute nausea or vomiting x1 week Patient : No service: No Meds Allergies Allergy/AdvReac Type Severity Reaction Status Date / Time acetaminophen (From Percocet) Allergy Abdominal Verified 08/22/25 12:55 Pain oxycodone (From Percocet) Allergy Abdominal Verified 08/22/25 12:55 Pain Active Medications: Current Medications Sodium Chloride (Ns) 1,000 mls @ 999 mls/hr IV .Q1H1M HEATHER Stop: 08/22/25 20:15 Vancomycin HCl (Vancomycin Hcl 125 Mg Capsule) 250 mg PO Q6H HEATHER Home Medications ?Medication ?Instructions ?Recorded ?Confirmed ?Last Taken ?Type hydroxychloroquine 200 mg tablet 400 mg PO DAILY 07/24/25 08/22/25 07/21/25 History duloxetine 60 mg capsule,delayed 60 mg PO DAILY 08/22/25 08/22/25 Unknown History release fidaxomicin 200 mg tablet 200 mg PO BID 08/22/25 08/22/25 08/22/25 History Physical Exam Vital Signs and Narrative: Vital Signs: Last Vital Signs Temp 100.1 F 08/22/25 17:22 Pulse 103 H 08/22/25 17:22 Resp 16 08/22/25 17:22 BP 156/75 H 08/22/25 17:22 Pulse Ox 96 08/22/25 17:22 O2 Del Method Room Air 08/22/25 17:22 BMI result Body Mass Index 24.8 Gen: Appears be in no acute distress HEENT: NCAT, Moist mucosa. Pulmonary: Vesicular breath sounds, fair air entry CVS: Normal S1-S2 Abdomen: BS+, Soft, mildly tender diffusely Extremities: Warm well perfused Neuro: Alert and awake. Results Labs 08/23/25 03:49 08/23/25 03:49 Labs: Laboratory Results - last 24 hr 08/22/25 08/22/25 08/22/25 13:52 15:11 18:17 MCV 88.2 MCH 28.9 MCHC 32.8 RDW 13.4 Plt Count 292 MPV 10.3 Immature Gran % (Auto) 0.3 Neut % (Auto) 83.6 H Lymph % (Auto) 11.5 L [place] % (Auto) 3.2 Eos % (Auto) 1.0 Baso % (Auto) 0.4 Lymph # (Auto) 1.2 [place] # (Auto) 0.3 Eos # (Auto) 0.1 Baso # (Auto) 0.0 Abs Immat Gran (auto) 0.03 Absolute Neuts (auto) 8.8 H Absolute Nucleated RBC 0.000 Nucleated RBC % (auto) 0.0 Anion Gap 11 L Estim Creat Clear Calc 71.3 Estimated GFR > 60 Random Glucose 96 Lactic Acid 2.1 H* Calcium 9.5 Magnesium 2.1 Total Bilirubin 0.7 AST 27 ALT 24 Alkaline Phosphatase 93 Total Protein 7.3 Albumin 4.3 Lipase 41 Urine Color Urine Appearance Urine pH Ur Specific [place] Urine Protein Urine Glucose (UA) Urine Ketones Urine Blood Urine Nitrite Ur Leukocyte Esterase Urine Test 08/22/25 18:38 MCV MCH MCHC RDW Plt Count MPV Immature Gran % (Auto) Neut % (Auto) Lymph % (Auto) [place] % (Auto) Eos % (Auto) Baso % (Auto) Lymph # (Auto) [place] # (Auto) Eos # (Auto) Baso # (Auto) Abs Immat Gran (auto) Absolute Neuts (auto) Absolute Nucleated RBC Nucleated RBC % (auto) Anion Gap Estim Creat Clear Calc Estimated GFR Random Glucose Lactic Acid Calcium Magnesium Total Bilirubin AST ALT Alkaline Phosphatase Total Protein Albumin Lipase Urine Color Yellow Urine Appearance Clear Urine pH 7.0 Ur Specific [place] 1.010 Urine Protein Negative Urine Glucose (UA) Negative Urine Ketones Negative Urine Blood Negative Urine Nitrite Negative Ur Leukocyte Esterase Negative Urine Test NEGATIVE Imaging Radiologist's Impressions: Impressions Abdomen/Pelvis CT 08/22/25 16:31 IMPRESSION: Worsening colitis. There is increased fat stranding in bowel wall thickening in the right colon and proximal half the transverse colon. This could be related to infection, ischemia, inflammatory bowel disease, and less likely neoplasm. There is short segment of distended small bowel in the central abdomen that is probably secondary to a paralytic ileus related to changes in the colon rather than a low-grade small bowel junction. Fleischner guidelines were followed. Electronically signed by: Demond Bowman MD 08/22/2025 04:56 PM [facility] [place] and Plan (1) Colitis: Status: Acute Plan 55-year-old female with a past medical history of lupus, CKD; depression; has been having colitis for about 4 months-shigella positive, recently diagnosed with C diff few days ago presented to the hospital with a chief complaint of abdominal pain/multiple episodes of loose watery diarrhea. CT abdomen pelvis today showed worsening colitis. C diff colitis: We will send stool studies Will give the patient on p.o. vancomycin Gentle IV fluids ID consult and Gastroenterology consult for further input HX lupus: Hold home hydroxychloroquine for now. DVT prophylaxis: Subcu heparin Code status: Full code Quality Stroke Does the patient have a stroke diagnosis?: No VTE Prior VTE?: No VTE Risk Level:: Medical - moderate - high VTE Device Contraindication: Treatment Not Indicated VTE Drug Contraindication: N/A - Med Ordered
--- NOTE | 2025-08-22 20:05 | PC.NURSE ---
Pt's IV painful and won't flush, IV removed. Attempted for another line and was unsuccessful. Awaiting ultrasound guided IV placement.
--- NOTE | 2025-08-22 20:18 | PHA.MEDREC ---
Addendum entered by Kaitlin Horner RPh 08/22/25 20:25: Reviewed by [facility] Original Note: Pharmacy Consult ? Medication Reconciliation Pharmacy has completed the medication reconciliation. Patient states she takes Duloxitine 60 mg and Hydroxychloroquine 400 mg, however she hasn't been feeling well. Patient hasn't taken her medications in a month
[2025-08-22 20:22] LABS: Reflex Lactate? Lactic Acid Added
[2025-08-22 21:07] LABS: ~Lactic Acid-LAB USE ONLY 1.4 mmol/L (0.5-2.0)
[2025-08-22] MEDS: Dextrose 5 % and 0.45 % NaCl 1,000 ML 100 ML IVCONT (22:02)
--- NOTE | 2025-08-23 00:44 | PC.NURSE ---
Pt aware of need for stool sample, pt reports still no BM since arriving to the ED.
[2025-08-23 01:01] VITALS: BP 142/85; PULSE 86; RESP 16; TEMP 36.9; O2SAT 99
--- NOTE | 2025-08-23 03:14 | HO.NURTONUR ---
Addendum entered by Cony Anne RN 08/23/25 09:01: Per attending, order for contact precaution for c.diff pending stool panel results to be entered. Addendum entered by Cony Anne RN 08/23/25 07:43: Care of Pt assumed at change of shift (0700.) Pt resting quietly with family at bedside. A&Ox3 with NAD noted at this time. Pt takes PO med this AM without complication. IVF running per DEC. Pt is NPO at this time. Pt has not provided stool sample for testing up to this point. Will collect and send to lab when Pt able to produce. Warm blanket provided. Awaiting inpatient bed assignment. Original Note: Pt is a 55 y.o. female coming in with n/v/d and lower abd pain. Pt was admitted here one month ago with colitis. PMH lupus, cervical cancer, CKD stage 3. Labs grossly unremarkable, urine neg. Abd CT shows worsening colitis. VSS, a&ox4. Pt ambulates independently to bathroom. Pt is aware we need a stool sample, reports she has not had a BM since arriving to the ED. 20 g left forearm, D5 in 0.45% NS running at 100 mL/hr. Medicated per DEC orders.
[2025-08-23 04:18] LABS: MANUAL DIFF FLAG NO
--- NOTE | 2025-08-23 04:20 | PC.NURSE ---
4am vital signs not completed per nurse, pt finally sleeping.
[2025-08-23 04:22] LABS: Hematocrit 29.1 % (37.0-47.0); Hemoglobin 9.7 g/dl (12.0-16.0); Imm Gran Abs Auto 0.02 X10*3/uL (0.00-0.03); Imm Gran Pct Auto 0.4 % (0.0-0.4); Lymphocytes Absolute Auto 1.8 X10*3/uL (1.2-4.9); Mean Corpuscular HGB Conc 33.3 g/dl (31.0-35.0); Mean Corpuscular Hemoglobin 29.0 pg (27.0-33.0); Mean Corpuscular Volume 86.9 fL (80.0-98.0); NRBC Abs Auto 0.000 X10*3/uL (0.0-0.012); NRBC Pct Auto 0.0 /100WBC (0.0-0.2); Platelet Count 214 X10*3/uL (160-400); Red Blood Count 3.35 X10*6/uL (4.20-5.50); White Blood Count 5.7 X10*3/uL (4.8-10.8)
[2025-08-23 04:32] LABS: Anion Gap 10 (12-20); Blood Urea Nitrogen 3 mg/dL (9-16); Calcium 8.3 mg/dL (8.4-10.2); Carbon Dioxide 23 mmol/L (22-29); Chloride 112 mmol/L (96-108); Creatinine Clr Calc Pharmacy 79.7; Estimated Glomerular Filt Rate > 60; Potassium 3.4 mmol/L (3.3-5.1); Sodium 142 mmol/L (135-145)
[2025-08-23 05:33] VITALS: BP 123/67; PULSE 75; RESP 18; TEMP 37.1; O2SAT 99
[2025-08-23] MEDS: Dextrose 5 % and 0.45 % NaCl 1,000 ML 100 ML IVCONT ×3 (05:36→23:46)
--- NOTE | 2025-08-23 07:15 | P.CNGI_ITS ---
History of Present Illness Data of Consult Service Date: 08/23/25 Requesting physician: Damaso Julian Primary Care Provider: ALONDRA Mark HPI Reason for consult: Colitis 55 YF with lupus, CKD; depression seen at [facility] on 08/22/25 with abdominal pain and 1 month hx of diarrhea and has been diagnosed with colitis; Pt reports her symptoms started on 07/22/25 with MAYES and dizziness followed by postprandial diarrhea (had the runs every time she ate). Pt visited [facility] 2-3 prior to onset of symptoms with a friend and ate a few bites from a wrap containing chicken, rice and guacamole. A friend ate the same food and was also unwell. Pt was hospitalized at [facility] [place] 07/27 with abdominal pain, fever, n, v, d and sepsis due to colitis. Stool was positive for Shigella/entero invasive E coli was treated with ceftriaxone and symptoms improved on discharge 5 more days of Ceftin. For acute kidney injury received IV fluids and resolved. For urinary tract infection treated with antibiotics as above, urine culture grew E coli and Klebsiella sensitive to cephalosporins. Acute hypokalemia was replaced. For history of lupus hydroxychloroquine was held and restarted on discharge. On August 11 she was told that she has C diff. prior to that she was shigella can positive. Her PCP prescribed fidaxomicin on 08/22/25 and pt denies any improvement in her symptoms. Given increased pain she came to the hospital for further evaluation. Denies any blood in the stool. Reports having multiple episodes of loose watery stool for the past few days. Today she had at least 10 episodes consisting of watery stools mixed with blood. She has been taking mostly fluids and eating less with significant wt loss (clothes have become loose) Patient denies any chest pain or palpitations or fevers. Pt is unsure if she has had EGD and colon in the past. Patient denies smoking or ETOH abuse. 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 There is increased fat stranding in bowel wall thickening in the right colon and proximal half the transverse colon. This could be related to infection, ischemia, inflammatory bowel disease, and less likely neoplasm. There is short segment of distended small bowel in the central abdomen that is probably secondary to a paralytic ileus related to changes in the colon rather than a low-grade small bowel junction. Review of Systems 2 Review of Systems: Yes all other systems are reviewed and are negative [facility] Past Medical History Medical History Cervical cancer CKD (chronic kidney disease) stage 3, GFR 30-59 ml/min Lupus (systemic lupus erythematosus) Date of last menstrual period: 08/23/25 Surgical History Surgical History S/P laparoscopic cholecystectomy H/O: hysterectomy Social History Social History Household Members: Children Housing: House Do you presently have visiting nurse or other home services: No Patient Tobacco Use Status: Never used Tobacco Advance Directives Date on File: 07/29/25 service: No Meds Allergies Allergy/AdvReac Type Severity Reaction Status Date / Time acetaminophen (From Percocet) Allergy Abdominal Verified 08/22/25 12:55 Pain oxycodone (From Percocet) Allergy Abdominal Verified 08/22/25 12:55 Pain Active Medications: Current Medications Calcium Carbonate (Calcium Carbonate 750 Mg Tab.Chew) 750 mg PO Q4H PRN PRN Reason: Heartburn Heparin Sodium (Porcine) (Heparin Sodium,Porcine 5,000 Unit/Ml Vial) 5,000 unit SUBCUT Q8H [facility] Last Admin: 08/23/25 02:49 Dose: Not Given Dextrose/Sodium Chloride (D51/2ns) 1,000 mls @ 100 mls/hr IVCONT .Q10H [facility] Last Admin: 08/23/25 05:36 Dose: 100 mls/hr Magnesium Hydroxide (Milk Of Magnesia 30 Ml Oral.Susp) 30 ml PO DAILY PRN PRN Reason: Constipation Melatonin (Melatonin 3 Mg Tablet) 6 mg PO BEDTIME PRN PRN Reason: Insomnia Sodium Chloride (0.9 % Sodium Chloride Flush 3 Ml Syringe) 3 ml IVFLUSH QSHIFT [facility] Last Admin: 08/23/25 07:02 Dose: Not Given Vancomycin HCl (Vancomycin Hcl 125 Mg Capsule) 125 mg PO Q6H [facility] Last Admin: 08/23/25 02:57 Dose: 125 mg Home Medications ?Medication ?Instructions ?Recorded ?Confirmed ?Last Taken ?Type hydroxychloroquine 200 mg tablet 400 mg PO DAILY 07/2408/22/25 07/21/25 History duloxetine 60 mg capsule,delayed 60 mg PO DAILY 08/22/25 Unknown History release fidaxomicin 200 mg tablet 200 mg PO BID 08/22/2508/2208/22/25 History Physical Exam 2 Vital Signs: Vital Signs: Last Vital Signs Temp 98.8 F 08/23/25 05:33 Pulse 75 08/23/25 05:33 Resp 18 08/23/25 05:33 BP 123/67 08/23/25 05:33 Pulse Ox 99 08/23/25 05:33 O2 Del Method Room Air 08/23/25 05:33 BMI result Body Mass Index 24.8 Const: General: no acute distress Nutritional Appearance: average body habitus Orientation/consciousness: patient oriented x3 Limitations: no limitations HEENT: Head: Yes normal to inspection Ears: hearing grossly normal bilaterally Eyes: Sclerae: sclerae normal Pupils: Equal, round and reactive pupils present Neck: Neck: Yes normal visual inspection Chest: Chest palpation & inspection: normal inspection of the chest Resp: Effort & Inspection: normal respiratory effort Auscultation: clear to auscultation bilaterally Cardio: Palpation: normal PMI Rate: regular rate Rhythm: regular rhythm Heart sounds: S1 normal heart sound present, S2 normal heart sound present and no murmurs GI: Palpation (GI): Soft to palpation, nontender and No hepatosplenomegaly present Auscultation: normal bowel sounds Rectal Exam - Female: deferred Skin: General skin exam: no rashes or lesions noted Neuro: General: patient oriented x3, gait normal and moves all extremities Cranial nerves: Yes Equal, round and reactive pupils present Psych: Appearance: grossly normal Mental Status: mental status grossly normal Results Labs 08/24/25 06:14 08/24/25 06:14 Labs: Short CBC 08/22/25 08/23/25 Range/Units 13:52 03:49 WBC 10.5 5.7 (4.8-10.8) X10*3/uL Hgb 12.2 9.7 L D (12.0-16.0) g/dl Hct 37.2 29.1 L D (37.0-47.0) % Plt Count 292 214 D (160-400) X10*3/uL BMP 08/22/25 08/23/25 15:11 03:49 Sodium 142 142 Potassium 4.2 D 3.4 Chloride 107 112 H Carbon Dioxide 28 23 BUN 6 L 3 L Creatinine 0.76 0.68 Calcium 9.5 8.3 L D Liver Function 08/22/25 Range/Units 15:11 Total Bilirubin 0.7 (0.0-1.0) mg/dL AST 27 (5-31) U/L ALT 24 (0-31) U/L Alkaline Phosphatase 93 (39-117) U/L Albumin 4.3 (3.5-5.0) g/dL Urine 08/22/25 Range/Units 18:38 Urine Color Yellow Urine Appearance Clear Urine pH 7.0 (5.0-9.0) Ur Specific [place] 1.010 (1.005-1.025) Urine Protein Negative (Neg-Trace) mg/dL Urine Glucose (UA) Negative (Negative) mg/dL Assessment and Plan (1) C. difficile colitis: Status: Acute Plan 55 YF with lupus, CKD; depression admitted [place] [facility] with a chief complaint of abdominal pain and 1 month hx of diarrhea. Patient mentioned she has been diagnosed with colitis; on August 11 she was told that she has C diff. prior to that she was shigella can positive. Pt was treated with fidaxomicin without response. She was started on p.o. vancomycin 125 mg 4 times daily and reports improvement in her symptoms. Abd CT scan showed worsening colitis RECOMMENDATIONS: 1. Agree with IV fluids, antiemetics and pain medications 2. Continue PO vancomycin x 14 days 3. If symptoms do not improve, can add IV metronidazole 500 mg every 8 hours and increase vancomycin dose to 250 mg QID. 4. Pt will be scheduled for colonoscopy as outpatient once C Diff colitis resolves. Procedures Date of Service Date of Service: 08/24/25
--- NOTE | 2025-08-23 10:27 | P.PNIM_ITS ---
Subjective Subjective Date of Service: 08/23/25 Physical Exam 2 Vital Signs: Vital Signs: Last Vital Signs Temp 98.8 F 08/23/25 05:33 Pulse 75 08/23/25 05:33 Resp 18 08/23/25 05:33 BP 123/67 08/23/25 05:33 Pulse Ox 99 08/23/25 05:33 O2 Del Method Room Air 08/23/25 05:33 BMI result Body Mass Index 24.8 Objective Data Active Medications Calcium Carbonate (Calcium Carbonate 750 Mg Tab.Chew) 750 mg PO Q4H PRN PRN Reason: Heartburn Heparin Sodium (Porcine) (Heparin Sodium,Porcine 5,000 Unit/Ml Vial) 5,000 unit SUBCUT Q8H [facility] Last Admin: 08/23/25 02:49 Dose: Not Given Documented By: GARDENIA Non-Admin Reason: Patient Refused Dextrose/Sodium Chloride (D51/2ns) 1,000 mls @ 100 mls/hr IVCONT .Q10H [facility] Last Admin: 08/23/25 05:36 Dose: 100 mls/hr Documented By: GARDENIA Magnesium Hydroxide (Milk Of Magnesia 30 Ml Oral.Susp) 30 ml PO DAILY PRN PRN Reason: Constipation Melatonin (Melatonin 3 Mg Tablet) 6 mg PO BEDTIME PRN PRN Reason: Insomnia Sodium Chloride (0.9 % Sodium Chloride Flush 3 Ml Syringe) 3 ml IVFLUSH QSHIFT [facility] Last Admin: 08/23/25 07:02 Dose: Not Given Documented By: DILLAN Non-Admin Reason: IV Running Vancomycin HCl (Vancomycin Hcl 125 Mg Capsule) 125 mg PO Q6H [facility] Last Admin: 08/23/25 07:38 Dose: 125 mg Documented By: DILLAN Labs 08/23/25 03:49 08/23/25 03:49 Labs: Laboratory Results - last 24 hr 08/22/25 08/22/25 08/22/25 13:52 15:11 18:17 MCV 88.2 MCH 28.9 MCHC 32.8 RDW 13.4 Plt Count 292 MPV 10.3 Immature Gran % (Auto) 0.3 Neut % (Auto) 83.6 H Lymph % (Auto) 11.5 L [place] % (Auto) 3.2 Eos % (Auto) 1.0 Baso % (Auto) 0.4 Lymph # (Auto) 1.2 [place] # (Auto) 0.3 Eos # (Auto) 0.1 Baso # (Auto) 0.0 Abs Immat Gran (auto) 0.03 Absolute Neuts (auto) 8.8 H Absolute Nucleated RBC 0.000 Nucleated RBC % (auto) 0.0 Anion Gap 11 L Estim Creat Clear Calc 71.3 Estimated GFR > 60 Random Glucose 96 Lactic Acid 2.1 H* Lactic Acid F/U @ 2Hr Calcium 9.5 Magnesium 2.1 Total Bilirubin 0.7 AST 27 ALT 24 Alkaline Phosphatase 93 Total Protein 7.3 Albumin 4.3 Lipase 41 Urine Color Urine Appearance Urine pH Ur Specific [place] Urine Protein Urine Glucose (UA) Urine Ketones Urine Blood Urine Nitrite Ur Leukocyte Esterase Urine Test 08/22/25 08/22/25 08/23/25 18:38 20:37 03:49 MCV 86.9 MCH 29.0 MCHC 33.3 RDW 13.2 Plt Count 214 D MPV 10.4 Immature Gran % (Auto) 0.4 Neut % (Auto) 56.5 Lymph % (Auto) 31.6 [place] % (Auto) 8.0 Eos % (Auto) 2.8 Baso % (Auto) 0.7 Lymph # (Auto) 1.8 [place] # (Auto) 0.5 Eos # (Auto) 0.2 Baso # (Auto) 0.0 Abs Immat Gran (auto) 0.02 Absolute Neuts (auto) 3.2 Absolute Nucleated RBC 0.000 Nucleated RBC % (auto) 0.0 Anion Gap 10 L Estim Creat Clear Calc 79.7 Estimated GFR > 60 Random Glucose 100 Lactic Acid Lactic Acid F/U @ 2Hr 1.4 Calcium 8.3 L D Magnesium Total Bilirubin AST ALT Alkaline Phosphatase Total Protein Albumin Lipase Urine Color Yellow Urine Appearance Clear Urine pH 7.0 Ur Specific [place] 1.010 Urine Protein Negative Urine Glucose (UA) Negative Urine Ketones Negative Urine Blood Negative Urine Nitrite Negative Ur Leukocyte Esterase Negative Urine Test NEGATIVE Assessment and Plan (1) Colitis: Status: Acute Plan 55-year-old female with a past medical history of lupus, CKD; depression; has been having colitis for about 4 months-shigella positive, recently diagnosed with C diff few days ago presented to the hospital with a chief complaint of abdominal pain/multiple episodes of loose watery diarrhea. CT abdomen pelvis today showed worsening colitis. C diff colitis Recent treatment for Shigella with antibiotics, likely developed C diff from that stool studies and cdiff ordered, positive cdiff at [facility] 08/13/25, was placed on fidoxomicin by PCP continue p.o. vancomycin Gentle IV fluids clear liquid diet ID consult and Gastroenterology consult for further input HX lupus Hold home hydroxychloroquine for now. Normocytic anemia Stable H&H DVT prophylaxis: Subcu heparin Code status: Full code Quality Stroke Does the patient have a stroke diagnosis?: No VTE Prior VTE?: No VTE Risk Level:: Medical - moderate - high VTE Device Contraindication: Treatment Not Indicated VTE Drug Contraindication: N/A - Med Ordered
[2025-08-23 11:07] VITALS: BMI 24.8
[2025-08-23 12:10] VITALS: BP 130/77; PULSE 78; RESP 16; TEMP 36.3; O2SAT 98
[2025-08-23 14:57] LABS: OBS Int Ctl Valid YES; OBS Lot 0224; OBS1 POSITIVE (NEGATIVE)
[2025-08-23 15:43] LABS: Leukocytes Stool Qualitative NEGATIVE (NEGATIVE)
[2025-08-23 15:45] VITALS: BP 119/68; PULSE 79; RESP 20; TEMP 36.6; O2SAT 99
[2025-08-23 15:55] LABS: CDiff Gene PCR NEGATIVE (Negative)
[2025-08-23 20:00] VITALS: BP 133/79; PULSE 82; RESP 18; TEMP 36.8; O2SAT 97
[2025-08-24 03:07] VITALS: BP 139/75; PULSE 75; RESP 15; TEMP 36.3; O2SAT 98
[2025-08-24 06:45] LABS: Hematocrit 30.1 % (37.0-47.0); Hemoglobin 9.8 g/dl (12.0-16.0); Mean Corpuscular HGB Conc 32.6 g/dl (31.0-35.0); Mean Corpuscular Hemoglobin 28.8 pg (27.0-33.0); Mean Corpuscular Volume 88.5 fL (80.0-98.0); NRBC Abs Auto 0.000 X10*3/uL (0.0-0.012); NRBC Pct Auto 0.0 /100WBC (0.0-0.2); Platelet Count 223 X10*3/uL (160-400); Red Blood Count 3.40 X10*6/uL (4.20-5.50); White Blood Count 3.0 X10*3/uL (4.8-10.8)
[2025-08-24 06:57] LABS: Anion Gap 9 (12-20); Blood Urea Nitrogen < 3 mg/dL (9-16); Calcium 8.7 mg/dL (8.4-10.2); Carbon Dioxide 27 mmol/L (22-29); Chloride 111 mmol/L (96-108); Creatinine Clr Calc Pharmacy 78.5; Estimated Glomerular Filt Rate > 60; Potassium 3.7 mmol/L (3.3-5.1); Sodium 143 mmol/L (135-145)
[2025-08-24 07:23] VITALS: BP 139/71; PULSE 72; RESP 14; TEMP 36.6; O2SAT 99
[2025-08-24] MEDS: Dextrose 5 % and 0.45 % NaCl 1,000 ML 100 ML IVCONT (09:01)
--- NOTE | 2025-08-24 11:40 | HO.PM.IMPN ---
Subjective Subjective Date of Service: 08/24/25 Review of Systems Follow up diarrhea, cdiff still with some lose stools no nausea or vomiting Physical Exam Exam: Exam: Appearing in no acute distress lung sounds are clear to auscultation heart regular rate rhythm, clear S1, S2 positive bowel sounds, abdomen is soft, nontender neuro patient is alert x3, no focal deficits Vital Signs: Vital Signs: Last Vital Signs Temp 97.8 F 08/24/25 07:23 Pulse 72 08/24/25 07:23 Resp 14 08/24/25 07:23 BP 139/71 08/24/25 07:23 Pulse Ox 99 08/24/25 07:23 O2 Del Method Room Air 08/24/25 07:23 BMI result Body Mass Index 24.8 Objective Data Active Medications Acetaminophen (Acetaminophen 325 Mg Tablet) 650 mg PO Q6H PRN PRN Reason: Headache Last Admin: 08/24/25 07:37 Dose: 650 mg Documented By: ROSA Calcium Carbonate (Calcium Carbonate 750 Mg Tab.Chew) 750 mg PO Q4H PRN PRN Reason: Heartburn Heparin Sodium (Porcine) (Heparin Sodium,Porcine 5,000 Unit/Ml Vial) 5,000 unit SUBCUT Q8H [facility] Last Admin: 08/24/25 03:14 Dose: 5,000 unit Documented By: SWAPNA Dextrose/Sodium Chloride (D51/2ns) 1,000 mls @ 100 mls/hr IVCONT .Q10H [facility] Last Admin: 08/24/25 09:01 Dose: 100 mls/hr Documented By: ROSA Magnesium Hydroxide (Milk Of Magnesia 30 Ml Oral.Susp) 30 ml PO DAILY PRN PRN Reason: Constipation Melatonin (Melatonin 3 Mg Tablet) 6 mg PO BEDTIME PRN PRN Reason: Insomnia Sodium Chloride (0.9 % Sodium Chloride Flush 3 Ml Syringe) 3 ml IVFLUSH QSHIFT [facility] Last Admin: 08/24/25 07:32 Dose: Not Given Documented By: ROSA Non-Admin Reason: IV Running Vancomycin HCl (Vancomycin Hcl 125 Mg Capsule) 125 mg PO Q6H [facility] Last Admin: 08/24/25 07:35 Dose: 125 mg Documented By: ROSA Labs 08/24/25 06:14 08/24/25 06:14 Labs: Laboratory Results - last 24 hr 08/23/25 08/24/25 14:42 06:14 MCV 88.5 MCH 28.8 MCHC 32.6 RDW 13.3 Plt Count 223 MPV 10.5 Absolute Nucleated RBC 0.000 Nucleated RBC % (auto) 0.0 Anion Gap 9 L Estim Creat Clear Calc 78.5 Estimated GFR > 60 Random Glucose 100 Calcium 8.7 Stool Occult Blood POSITIVE Stool Leukocytes, Qual NEGATIVE C. difficile Tox B Gene NEGATIVE Assessment and Plan (1) Colitis: Status: Acute Plan 55-year-old female with a past medical history of lupus, CKD; depression; has been having colitis for about 4 months-shigella positive, recently diagnosed with C diff few days ago presented to the hospital with a chief complaint of abdominal pain/multiple episodes of loose watery diarrhea. CT abdomen pelvis today showed worsening colitis. C diff colitis Recent treatment for Shigella with antibiotics, likely developed C diff from that stool studies and cdiff ordered, [place] [facility] [place], was placed on fidoxomicin by PCP continue p.o. vancomycin increased to 250 QID as per GI s/p IV fluids diet advanced Gastroenterology consult> continue po vanco x14 days, colonoscopy o/p HX lupus Hold home hydroxychloroquine for now. Normocytic anemia Stable H&H DVT prophylaxis: Subcu heparin Code status: Full code Quality Stroke Does the patient have a stroke diagnosis?: No VTE Prior VTE?: No VTE Risk Level:: Medical - moderate - high VTE Device Contraindication: Treatment Not Indicated VTE Drug Contraindication: N/A - Med Ordered
[2025-08-24 11:55] LABS: Iron 75 mcg/dL (30-160); Percent Iron Saturation 35 % (15-50); Total Iron Binding Capacity 214 mcg/dL (228-428); Unsaturated Iron Binding 139 ug/dL
[2025-08-24 12:45] LABS: E. coli EAEC Not Detected (Not Detect.); E. coli EPEC Not Detected (Not Detect.); E. coli ETEC Not Detected (Not Detect.); E. coli STEC Not Detected (Not Detect.); Shigella sp./EIEC Not Detected (Not Detect.)
[2025-08-24] MEDS: 0.9 % Sodium Chloride Flush 3 ML SYRINGE IVFLUSH ×2 (15:25→19:21)
[2025-08-24 16:00] VITALS: BP 136/75; PULSE 79; RESP 16; TEMP 36.3; O2SAT 98
--- NOTE | 2025-08-24 16:33 | MHC.CM.PN ---
PT REPORT SHE LIVES WITH ADULT CHILDREN AND IS FUNCTIONALLY INDEPENDENT. PT USES A WALKER/CANE WHEN HAVING FLARE OF LUPUS SX. DENIES HAVING SERVICES. HCP ON FILE PCP: REINALDO NAVARRO DP: HOME, NO SERVICES. PT HAS OWN RIDE HOME.
[2025-08-24 19:28] VITALS: BP 131/79; PULSE 97; RESP 16; TEMP 36.8; O2SAT 97
[2025-08-25 03:10] VITALS: BP 133/74; PULSE 78; RESP 16; TEMP 36.2; O2SAT 98
[2025-08-25 06:35] LABS: Hematocrit 29.3 % (37.0-47.0); Hemoglobin 9.6 g/dl (12.0-16.0)
[2025-08-25 06:53] LABS: Anion Gap 12 (12-20); Blood Urea Nitrogen 6 mg/dL (9-16); Calcium 8.8 mg/dL (8.4-10.2); Carbon Dioxide 25 mmol/L (22-29); Chloride 110 mmol/L (96-108); Creatinine Clr Calc Pharmacy 75.3; Estimated Glomerular Filt Rate > 60; Magnesium 1.9 mg/dL (1.6-2.6); Potassium 3.6 mmol/L (3.3-5.1); Sodium 143 mmol/L (135-145)
[2025-08-25] MEDS: 0.9 % Sodium Chloride Flush 3 ML SYRINGE IVFLUSH (07:28)
--- NOTE | 2025-08-25 07:28 | P.DS_ITS ---
DS: Providers Provider Date of Service: 08/25/25 Date of admission: 08/22/25 19:43 Date of discharge: 08/25/25 Primary care physician: ALONDRA Mark Consults: 08/22/25 19:41 Consult to Infectious Diseases Routine Consulting Provider: [facility] Reason for consultation: Worsening colitis; C diff 08/22/25 19:43 Consult to Gastroenterology Routine Consulting Provider: [facility] Reason for consultation: colitis DS: Diagnosis Discharge Diagnosis (1) Colitis: Status: Acute DS: Summary Hospital Course Hospital Course: History and physical as per admitting provider. 55-year-old female with a past medical history of lupus, CKD; depression; presented to the hospital with a chief complaint of abdominal pain. Patient mentioned that for about a month she has been having diarrhea and has been diagnosed with colitis; on August 11 she was told that she has C diff. prior to that she was shigella can positive. Today she had increased abdominal pain. Her PCP prescribed fidaxomicin today. Given increased pain she came to the hospital for further evaluation. Denies any blood in the stool. Reports having multiple episodes of loose watery stool for the past few days. Today she had at least 10 episodes. Patient denies any chest pain or palpitations. Denies any fevers. Review of all other systems is negative except mentioned above ER course: Per ER team, patient notes diffuse abdominal tenderness; no guarding or rigidity; CT abdomen pelvis showed worsening colitis. C diff colitis Recent treatment for Shigella with antibiotics, likely developed C diff from that stool studies and cdiff negative, positive cdiff at [facility] 08/13/25, was placed on fidoxomicin by PCP Started on p.o. vancomycin and increased to 250 QID as per GI s/p IV fluids diet advanced Gastroenterology consult> continue po vanco x14 days, colonoscopy o/p HX lupus Continue hydroxychloroquine Normocytic anemia Stable H&H Time Attestation Discharge Coordination Time (in mins): 45 Quality: Safe Use of Opioids Does Pt have an Active Cancer Diagnosis on the Problem List?: No Quality: Stroke Does the patient have a stroke diagnosis?: No Physical Exam Exam: Exam: Appearing in no acute distress head is normocephalic atraumatic eyes pupils are PERRLA sclera is anicteric mouth throat mucous membranes are intact and moist neck is supple no lymphadenopathy, no JVD noted lung sounds are clear to auscultation heart regular rate rhythm, clear S1, S2 positive bowel sounds, abdomen is soft, nontender neuro patient is alert x3, no focal deficits Vital Signs: Vital Signs: Last Vital Signs Temp 97.1 F 08/25/25 03:10 Pulse 78 08/25/25 03:10 Resp 16 08/25/25 03:10 BP 133/74 08/25/25 03:10 Pulse Ox 98 08/25/25 03:10 O2 Del Method Room Air 08/25/25 03:10 BMI result Body Mass Index 24.8 DS: Data Data Completed and Pending Labs on day of discharge: Laboratory Results - last 24 hr 08/23/25 08/24/25 08/25/25 14:42 06:14 05:41 Hgb 9.6 L Hct 29.3 L Sodium 143 Potassium 3.6 Chloride 110 H Carbon Dioxide 25 Anion Gap 12 BUN 6 L Creatinine 0.72 Estim Creat Clear Calc 75.3 Estimated GFR > 60 Random Glucose 92 Calcium 8.8 Magnesium 1.9 Iron 75 TIBC 214 L % Saturation 35 Unsat Iron Binding 139 Stl C. cayetanensis PCR Not Detected Stool Rotavirus A PCR Not Detected Stl Adenov F 40/41 PCR Not Detected Stool Astrovirus (PCR) Not Detected Stool Campylobacter PCR Not Detected Stool Cryptosporidium PCR Not Detected Stl Sh Tox Pr E STEC PCR Not Detected Stool E coli O157 PCR Not applicable Stl Enterotoxigenic E PCR Not Detected Stool EPEC (PCR) Not Detected Stool EAEC (PCR) Not Detected Stl E. histolytica PCR Not Detected Stool Giardia Lamblia PCR Not Detected Stl P. shigelloides PCR Not Detected Stool Salmonella PCR Not Detected Stool Sapovirus (PCR) Not Detected Stl Shigella/EIEC PCR Not Detected St Y.enterocolitica PCR Not Detected Stool Vibrio (PCR) Not Detected Stl Vibrio cholerae PCR Not Detected Stl Norovirus GI/GII PCR Not Detected Discharge Plan Discharge Anticipated Discharge Date/Time: 08/25/25 07:24 Patient Disposition: Home, Self-Care Discharge Diagnosis: C diff colitis Referrals: Neisha Knott FNP [Primary Care Provider, Internal Medicine] - 1 Week Discharge Medications: New vancomycin 125 mg Capsule 250 mg PO Q6H Qty: 112 0RF Continued duloxetine 60 mg capsule,delayed release(DR/EC) 60 mg PO DAILY hydroxychloroquine 200 mg tablet 400 mg PO DAILY Discontinued fidaxomicin 200 mg tablet 200 mg PO BID Discharge Orders: Discharge Order (Routine); Ordered 08/25/25 Ordered By: Brooke Kramer Diet: Advance to usual diet Activity on Discharge: As tolerated Stand Alone Forms: Patient Portal Discharge page Print Language: Maltese Care Plan Goals: Complete course of vancomycin, follow up with primary care provider if no improvement Health Concerns: C diff colitis Plan of Treatment: Follow up with primary care provider as needed Take all medications as prescribed Assessment: See discharge summary
[2025-08-25 07:36] VITALS: BP 135/66; PULSE 75; RESP 16; TEMP 36.2; O2SAT 98
--- NOTE | 2025-08-25 08:50 | MHC.CM.PN ---
pt dcd home self care
== END 2025-08-25 09:34 | disposition home or self-care (01) | DRG 248 ==
LOC: HO.ED 19:46 → HO.EDOVER 19:50 → HO.S3 08-23 09:44
PROVIDERS: Physician Assistant; Admitting Provider Hospitalist; Emergency Provider Emergency Medicine Emergency Medical Services; PCP Nurse Practitioner Family; Visit Provider Nurse Practitioner Acute Care
DX: A04.72 Enterocolitis due to Clostridium difficile, not specified as recurrent (principal); M32.9 Systemic lupus erythematosus, unspecified; D64.9 Anemia, unspecified; Z79.899 Other long term (current) drug therapy
CPT/HCPCS: 36415; 74176; 80048; 80053; 81003; 81025; 82272; 83540; 83605; 83690; 83735; 85014; 85018; 85025; 85027; 87493; 87507; 89055; 99285; J1644; J1885; J2405

== ENCOUNTER → 2025-08-22 15:24 | Outpatient (BNV) | payer BC, SELFPAY | PROVIDERS: Emergency Provider Emergency Medicine Emergency Medical Services; PCP Nurse Practitioner Family; Visit Provider Radiology Diagnostic Radiology | DX: K52.9 Noninfective gastroenteritis and colitis, unspecified (principal); K56.7 Ileus, unspecified | CPT/HCPCS: 74176 ==

== ENCOUNTER → 2025-08-22 19:43 | Outpatient (BNV) | payer BC, SELFPAY | PROVIDERS: Admitting Provider Hospitalist; Emergency Provider Emergency Medicine Emergency Medical Services; PCP Nurse Practitioner Family; Visit Provider Internal Medicine Gastroenterology | DX: A04.72 Enterocolitis due to Clostridium difficile, not specified as recurrent (principal) | CPT/HCPCS: 99253 ==

== ENCOUNTER → 2025-08-22 19:43 | Outpatient (BNV) | payer BC, SELFPAY | PROVIDERS: Admitting Provider Hospitalist; Emergency Provider Emergency Medicine Emergency Medical Services; PCP Nurse Practitioner Family; Visit Provider Nurse Practitioner Acute Care | DX: K52.9 Noninfective gastroenteritis and colitis, unspecified (principal) | CPT/HCPCS: 99223; 99232 ==